=== PATIENT | female | born 1965 | race Caucasian/White ===

== ENCOUNTER 2022-10-08 20:30 | Inpatient (IN) | payer SELFPAY ==
[2022-10-08] VITALS (8 sets, daily range): BP systolic 137–189; BP diastolic 61–110; PULSE 71–100; RESP 13–19; TEMP 36.7–40; O2SAT 95–99; BMI 31.3
[2022-10-08] MEDS: Morphine 2 MG/ML Syringe IV (20:58)
[2022-10-08] MEDS: Ondansetron 4 MG/2 ML Vial IV (21:00)
--- NOTE | 2022-10-08 21:05 | EDS_ITS ---
HPI <ARASELI Uribe - Last Filed: 10/08/22 23:24> History of Present Illness Chief Complaint: Lower Extremity Injury Narrative Narrative: Presents today with pain to her left ankle after falling down the stairs shortly before arrival. She is unable to provide me much information because she is in so much pain. But has been states that she did not hit her head, and there was no loss of consciousness. states patient's only chronic medical co ndition is diabetes for which she takes metformin and Ozempic. She denies back pain, neck pain, head pain, and pain to the right extremity. [facility] <ARASELI Uribe - Last Filed: 10/08/22 23:24> [facility] Medical History (Updated 10/08/22 @ 23:24 by ARASELI Uribe) Pre-diabetes Allergy/AdvReac Type Severity Reaction Status Date / Time No Known Allergies Allergy Verified 10/08/22 20:31 Social History Smoking Status: Never smoker ROS <ARASELI Uribe - Last Filed: 10/08/22 23:24> ROS ED Constitutional Constitutional ED: Denies chills, fever(s) or sweats Eyes Eyes: Denies blurry vision or change in vision ENT ENT ED: Denies rhinorrhea or sore throat Cardiovascular Cardiovascular: Denies chest pain, palpitations or racing heartbeat Respiratory/Chest Respiratory/Chest: Denies cough, dyspnea or dyspnea on exertion Gastrointestinal Gastrointestinal: Denies abdominal pain, diarrhea, nausea or vomiting Genitourinary Genitourinary ED: Denies dysuria, hematuria or urinary frequency Musculoskeletal Musculoskeletal: Reports deformity, difficulty walking, joint pain and joint swelling Integumentary Denies abscess, Abrasions or rash Neurologic Neurologic: Denies headache(s), paresthesias or weakness Psychiatric Psychiatric: Denies anxiety, depression or suicidal ideation EXAM <ARASELI Uribe - Last Filed: 10/08/22 23:24> Physical Exam Const Vital Signs: 10/08/22 20:31 10/08/22 21:04 10/08/22 21:13 Temperature 104 F H 98.1 F Temperature Source Temporal Oral Pulse Rate 100 Pulse Rate [1 (Initial Baseline)] Pulse Rate [2] Pulse Rate [3] Pulse Rate [4] Pulse Rate [5] Respiratory Rate 16 Respiratory Rate [1 (Initial Baseline)] Respiratory Rate [2] Respiratory Rate [3] Respiratory Rate [4] Respiratory Rate [5] Blood Pressure 179/110 H Blood Pressure [1 (Initial Baseline)] Blood Pressure [2] Blood Pressure [3] Blood Pressure [4] Blood Pressure [5] Blood Pressure Mean 133 Pulse Ox 97 98 Oxygen Delivery Method Room Air Oxygen Delivery Method [1 (Initial Baseline)] Oxygen Delivery Method [2] Oxygen Delivery Method [3] Oxygen Delivery Method [4] Oxygen Delivery Method [5] Oxygen Flow Rate (L/min) [1 (Initial Baseline)] Oxygen Flow Rate (L/min) [4] Oxygen Flow Rate (L/min) [5] 10/08/22 22:47 10/08/22 22:52 10/08/22 23:10 Temperature 98.2 F Temperature Source Pulse Rate 71 Pulse Rate [1 (Initial Baseline)] 77 Pulse Rate [2] 74 Pulse Rate [3] 90 Pulse Rate [4] 78 Pulse Rate [5] 78 Respiratory Rate 13 Respiratory Rate [1 (Initial Baseline)] 13 Respiratory Rate [2] 19 H Respiratory Rate [3] 17 Respiratory Rate [4] 18 Respiratory Rate [5] 14 Blood Pressure 185/68 H Blood Pressure [1 (Initial Baseline)] 189/73 H Blood Pressure [2] 155/64 H Blood Pressure [3] 156/64 H Blood Pressure [4] 151/61 H Blood Pressure [5] 137/84 H Blood Pressure Mean Pulse Ox 98 Oxygen Delivery Method Room Air Room Air Oxygen Delivery Method [1 (Initial Baseline)] Nasal Cannula Oxygen Delivery Method [2] Nasal Cannula Oxygen Delivery Method [3] Nasal Cannula Oxygen Delivery Method [4] Nasal Cannula Oxygen Delivery Method [5] Nasal Cannula Oxygen Flow Rate (L/min) [1 (Initial Baseline)] 4 Oxygen Flow Rate (L/min) [4] 6 Oxygen Flow Rate (L/min) [5] 4 10/08/22 23:15 10/08/22 23:20 Temperature Temperature Source Pulse Rate Pulse Rate [1 (Initial Baseline)] Pulse Rate [2] Pulse Rate [3] Pulse Rate [4] Pulse Rate [5] Respiratory Rate Respiratory Rate [1 (Initial Baseline)] Respiratory Rate [2] Respiratory Rate [3] Respiratory Rate [4] Respiratory Rate [5] Blood Pressure Blood Pressure [1 (Initial Baseline)] Blood Pressure [2] Blood Pressure [3] Blood Pressure [4] Blood Pressure [5] Blood Pressure Mean Pulse Ox Oxygen Delivery Method Room Air Room Air Oxygen Delivery Method [1 (Initial Baseline)] Oxygen Delivery Method [2] Oxygen Delivery Method [3] Oxygen Delivery Method [4] Oxygen Delivery Method [5] Oxygen Flow Rate (L/min) [1 (Initial Baseline)] Oxygen Flow Rate (L/min) [4] Oxygen Flow Rate (L/min) [5] Positive well nourished and well developed General Appearance ED: well developed HEENT Reports moist mucous membranes normocephalic and atraumatic Eyes PERRL Neck full ROM Chest Wall inspection of chest normal and palpation of chest normal Resp normal respiratory effort and no retractions Cardio regular rate, regular rhythm and no murmurs GI non-tender, non-distended and no masses Extremity Extremity Narrative: Left ankle grossly edematous with visible deformity. Patient has limited range of motion due to pain. Physical exam limited due to patient's pain. DP pulses 2+ bilaterally. Good capillary refill bilaterally. Sensation intact bilaterally. Neuro oriented x3, CN's II-XII intact bilaterally, moves all extremities and no senso ry deficits noted Sensorium / Orientation: alert Psych mental status grossly normal Skin Lesions: no lesions Rashes: no rashes <Dr. Danielle Milian MD - Last Filed: 10/09/22 00:03> Physical Exam Const Vital Signs: 10/08/22 20:31 10/08/22 21:04 10/08/22 21:13 Temperature 104 F H 98.1 F Temperature Source Temporal Oral Pulse Rate 100 Pulse Rate [1 (Initial Baseline)] Pulse Rate [2] Pulse Rate [3] Pulse Rate [4] Pulse Rate [5] Respiratory Rate 16 Respiratory Rate [1 (Initial Baseline)] Respiratory Rate [2] Respiratory Rate [3] Respiratory Rate [4] Respiratory Rate [5] Blood Pressure 179/110 H Blood Pressure [1 (Initial Baseline)] Blood Pressure [2] Blood Pressure [3] Blood Pressure [4] Blood Pressure [5] Blood Pressure Mean 133 Pulse Ox 97 98 Oxygen Delivery Method Room Air Oxygen Delivery Method [1 (Initial Baseline)] Oxygen Delivery Method [2] Oxygen Delivery Method [3] Oxygen Delivery Method [4] Oxygen Delivery Method [5] Oxygen Flow Rate (L/min) [1 (Initial Baseline)] Oxygen Flow Rate (L/min) [4] Oxygen Flow Rate (L/min) [5] 10/08/22 22:47 10/08/22 22:52 10/08/22 23:10 Temperature 98.2 F Temperature Source Pulse Rate 71 Pulse Rate [1 (Initial Baseline)] 77 Pulse Rate [2] 74 Pulse Rate [3] 90 Pulse Rate [4] 78 Pulse Rate [5] 78 Respiratory Rate 13 Respiratory Rate [1 (Initial Baseline)] 13 Respiratory Rate [2] 19 H Respiratory Rate [3] 17 Respiratory Rate [4] 18 Respiratory Rate [5] 14 Blood Pressure 185/68 H Blood Pressure [1 (Initial Baseline)] 189/73 H Blood Pressure [2] 155/64 H Blood Pressure [3] 156/64 H Blood Pressure [4] 151/61 H Blood Pressure [5] 137/84 H Blood Pressure Mean Pulse Ox 98 Oxygen Delivery Method Room Air Room Air Oxygen Delivery Method [1 (Initial Baseline)] Nasal Cannula Oxygen Delivery Method [2] Nasal Cannula Oxygen Delivery Method [3] Nasal Cannula Oxygen Delivery Method [4] Nasal Cannula Oxygen Delivery Method [5] Nasal Cannula Oxygen Flow Rate (L/min) [1 (Initial Baseline)] 4 Oxygen Flow Rate (L/min) [4] 6 Oxygen Flow Rate (L/min) [5] 4 10/08/22 23:15 10/08/22 23:20 Temperature Temperature Source Pulse Rate Pulse Rate [1 (Initial Baseline)] Pulse Rate [2] Pulse Rate [3] Pulse Rate [4] Pulse Rate [5] Respiratory Rate Respiratory Rate [1 (Initial Baseline)] Respiratory Rate [2] Respiratory Rate [3] Respiratory Rate [4] Respiratory Rate [5] Blood Pressure Blood Pressure [1 (Initial Baseline)] Blood Pressure [2] Blood Pressure [3] Blood Pressure [4] Blood Pressure [5] Blood Pressure Mean Pulse Ox Oxygen Delivery Method Room Air Room Air Oxygen Delivery Method [1 (Initial Baseline)] Oxygen Delivery Method [2] Oxygen Delivery Method [3] Oxygen Delivery Method [4] Oxygen Delivery Method [5] Oxygen Flow Rate (L/min) [1 (Initial Baseline)] Oxygen Flow Rate (L/min) [4] Oxygen Flow Rate (L/min) [5] MDM <ARASELI Uribe - Last Filed: 10/08/22 23:24> MDM MDM Narrative Medical decision making narrative: Patient presents after falling down the steps and injuring her left ankle. Patient was provided pain control as well as Zofran. X-ray of the ankle shows a fracture as well as a dislocation. Patient's dislocation was reduced and splinted. Postreduction x-rays were obtained. Radiography Diagnostic Testing: Clinical Impression(s) from Imaging Studies Ankle X-Ray 10/08/22 21:30 IMPRESSION: Complex acute fracture/dislocation involving the ankle with acute mildly comminuted fracture of the medial malleolus and laterally displaced fracture involving the metaphysis of the distal fibula. There is disruption of the normal tibiotalar articulation such that the talar dome is subluxed laterally relative to the tibial plafond by approximately 1.7 cm. Electronically Signed: Favio Soares MD at 21:41 EST , Ankle X-Ray 10/08/22 23:06 IMPRESSION: 1. Casting material in place status post closed reduction. 2. Bimalleolar fracture. There has been mild improvement in alignment however persistent subluxation at the tibiotalar articulation. Electronically Signed: King Ordaz MD at 23:40 EST , <Dr. Danielle Milian MD - Last Filed: 10/09/22 00:03> [facility] Radiography Diagnostic Testing: Clinical Impression(s) from Imaging Studies Ankle X-Ray 10/08/22 21:30 IMPRESSION: Complex acute fracture/dislocation involving the ankle with acute mildly comminuted fracture of the medial malleolus and laterally displaced fracture involving the metaphysis of the distal fibula. There is disruption of the normal tibiotalar articulation such that the talar dome is subluxed laterally relative to the tibial plafond by approximately 1.7 cm. Electronically Signed: Favio Soares MD at 21:41 EST , Ankle X-Ray 10/08/22 23:06 IMPRESSION: 1. Casting material in place status post closed reduction. 2. Bimalleolar fracture. There has been mild improvement in alignment however persistent subluxation at the tibiotalar articulation. Electronically Signed: King Ordaz MD at 23:40 EST , Treatment and Re-Evaluation Narrative: Patient seen and evaluated with BRITTANEY. I personally interviewed and examined the patient. I was involved in all aspects of patient's orders, interpretation of results, and treatment. Patient presents via private vehicle with family after falling down 2 steps at home. She has left ankle injury and deformity. She denies striking her head or any other injury. She did not lose consciousness. Patient sitting upright in bed. She is uncomfortable and tearful. Head and neck examination shows no external sign of trauma. No C-spine tenderness on exam. Heart is slightly tachycardic and regular. Lung sounds are clear. Abdomen is soft and nontender. Extremity examination reveals pelvis to be stable. Deformity is noted to the left ankle with medial ecchymosis and edema. There is a superficial abrasion that does not track through the full skin thickness. She is able to wiggle toes and has good sensation and cap refill. Patient given analgesics for pain control and left ankle x-rays obtained. Per my interpretation this reveals a bimalleolar ankle fracture with dislocation. Patient is consented for procedural sedation. She receives multiple aliquots of propofol for a total of 200 mg. Left ankle is reduced and splinted with posterior splint as well as sugar-tong. Following splint application she has good cap refill in her toes. She has normal sensation. Repeat x-rays show improved alignment, however talus is still significantly displaced. Patient was discussed with Dr. Woodall. Patient will require surgery. Patient has multiple flights of steps at home and does not feel that she is able to get around well enough and have good enough pain control. Patient will be admitted tonight and Dr. Woodall will determine appropriate time for surgery. Patient is comfortable with this plan. <Dr. Danielle Milian MD - Last Filed: 10/09/22 00:03> Lower Extremity Splints Lower Extremity Splint: Orthoglass Splint Fabrication: Fabricated Location: Left Procedural Sedation 1 (Initial Baseline): Consent Signed: Yes Any Problems With Anesthesia: No You/Your family experience fever (hyperthermia) w/anesthesia: No Sedation medication: Propofol Dose: 200 Route: IV Total Moderate Sedation Units: 12 Mallampati Score: Class I ASA Classification: I Discharge Plan Triage Chief Complaint: Lower Extremity Injury ED Midlevel Provider: Suzy Lozano ED Provider: Danielle Milian Dx/Rx/DC Orders Clinical Impression: Dislocation of ankle, left, closed, Ankle fracture, left Primary Care Provider: Care Physician,No Primary Referrals: Keshawn Woodall DPM [[facility] Staff - Active Staff] - 3-5 Days [facility] Doctor,Out of [Non-Staff] - Disposition Disposition: Acute Care Hospital [facility]
[2022-10-08] MEDS: HYDROmorphone 0.5 MG/0.5 ML SYRINGE IV (21:08)
--- NOTE | 2022-10-08 21:30 | RAD_ITS ---
EXAM: XR LEFT ANKLE COMPLETE, 3 OR MORE VIEWS CLINICAL INDICATION: fall TECHNIQUE: Frontal, lateral and oblique views of the left ankle. This report was created using [employer] report generation technology. COMPARISON: None. FINDINGS: BONES/JOINTS: Complex acute fracture/dislocation involving the ankle with acute mildly comminuted fracture of the medial malleolus and laterally displaced fracture involving the metaphysis of the distal fibula (with valgus angulation at the fracture site). There is disruption of the normal tibiotalar articulation such that the talar dome is subluxed laterally relative to the tibial plafond by approximately 1.7 cm. Suspect at least small posterior tibiotalar joint effusion. Tiny plantar calcaneal enthesophyte. No sclerotic or destructive changes observed. SOFT TISSUES: Soft tissue swelling seen adjacent to the fracture sites. No radiopaque foreign body. RAD/Ankle min 3 Views IMPRESSION: Complex acute fracture/dislocation involving the ankle with acute mildly comminuted fracture of the medial malleolus and laterally displaced fracture involving the metaphysis of the distal fibula. There is disruption of the normal tibiotalar articulation such that the talar dome is subluxed laterally relative to the tibial plafond by approximately 1.7 cm. Electronically Signed: Favio Soares MD at 21:41 EST ,
--- NOTE | 2022-10-08 23:06 | RAD_ITS ---
INDICATION: post reduction EXAMINATION/TECHNIQUE: X-RAY - LEFT XR Ankle 2 Views 2 VIEWS COMPARISON: Earlier same date FINDINGS: SOFT TISSUES: No soft tissue swelling or gas. No radiopaque foreign body. BONES/JOINTS: Casting material in place. There has been improved alignment, medial and lateral malleolar fractures present, moderate persistent lateral subluxation of the talus.. No other acute bony changes. RAD/Ankle 2 Views IMPRESSION: 1. Casting material in place status post closed reduction. 2. Bimalleolar fracture. There has been mild improvement in alignment however persistent subluxation at the tibiotalar articulation. Electronically Signed: King Ordaz MD at 23:40 EST ,
[2022-10-08] MEDS: Propofol 200 MG/20 ML Vial IV BOLUS (23:16)
--- NOTE | 2022-10-08 23:49 | EKG12_ITS ---
Test Reason : PRE-OP Blood Pressure : / mmHG Vent. Rate : 064 BPM Atrial Rate : 064 BPM P-R Int : 148 ms QRS Dur : 078 ms QT Int : 406 ms P-R-T Axes : 050 010 020 degrees QTc Int : 418 ms Normal sinus rhythm Normal ECG Confirmed by DARBY MCKEON, FOUZIA ([id number]), legal editor MIKE MARROQUIN ([id number]) on 10/10/2022 6:36:28 AM Referred By: OCTAVIANO Confirmed By:RAYO PASTOR MD
[2022-10-09] VITALS (12 sets, daily range): BP systolic 137–172; BP diastolic 70–90; PULSE 65–99; RESP 14–16; TEMP 36.4–36.8; O2SAT 95–98; BMI 32.0
[2022-10-09 00:15] LABS: Absolute Neutrophil Count 13.3 X10^3/uL (2.0-7.7); Basophil# 0.04 X10^3/uL; Basophil% 0.3 % (0-1); Eosinophil# 0.06 X10^3/uL; Eosinophils% 0.4 % (0-5); Hematocrit 41.5 % (37-47); Hemoglobin 13.7 g/dL (12.0-15.0); Lymphocyte % 10.1 % (19-41); Mean Corpuscular Hgb 29.1 pg (27.0-32.0); Mean Corpuscular Volume 88.3 fL (81-99); Mean Platelet Vol. 9.6 fl (6.2-12.0); Monocyte# 0.69 X10^3/uL; Monocyte% 4.4 % (0-10); NRBC Flagged by Analyzer 0 % (0-5); Neutrophil # 13.27 X10^3/uL (2.7-7.7); Platelet Count 259 K/mm3 (150-450); RBC Distribution Width CV 12.5 % (11.6-14.6); RBC Distribution Width SD 40.7 fl (35.1-43.9); White Blood Count 15.8 K/mm3 (4.4-11.0)
[2022-10-09 00:48] LABS: AST(SGOT) 10 U/L (15-37); Alanine Aminotransfer ALT/SGPT 18 U/L (13-56); Albumin, Serum 3.5 g/dL (3.2-5.0); Alkaline Phosphatase 97 U/L (45-117); Anion Gap 5 (5-15); BUN 12 mg/dL (7-18); BUN/Creat Ratio 13.4 RATIO (10-20); Calcium,Total 8.5 mg/dL (8.5-10.1); Chloride 111 mmol/L (98-107); Creatinine, Serum 0.89 mg/dL (0.55-1.02); EST Glomerular Filtration Rate 69 mL/min (>60); Est Glom Filt Rate - Afr Amer 83 mL/min (>60); Globulin 3.4 g/dL (2.2-4.2); Glucose 146 mg/dL (74-106); Potassium 3.8 mmol/L (3.5-5.1); Protein, Total 6.9 g/dL (6.4-8.2); Sodium Level 141 mmol/L (136-145)
[2022-10-09] MEDS: HYDROmorphone 1 MG/ML Syringe IV ×3 (01:17→11:51)
[2022-10-09] MEDS: Acetaminophen 325 MG Tablet 650 MG PO ×2 (04:52→22:55)
[2022-10-09] MEDS: oxyCODONE 5 MG Tablet 10 MG PO (04:52)
[2022-10-09] MEDS: 0.9% Saline Lock 10 ML Syringe IV ×2 (06:58→11:51)
--- NOTE | 2022-10-09 07:20 | HP.PCM.HOS_ITS ---
HPI - General General Date of Admission: 10/08/22 HPI Narrative MEGAN CAMPA, is a 57 F who presents [facility] Medical History Pre-diabetes Home Medications Ozempic weight loss 10/09/22 [History Last Taken Unknown] metformin 500 mg QHS prediabetes 10/09/22 [History Last Taken Unknown] progesterone micronized 200 mg capsule 200 mg QHS hormone replacement 10/09/22 [History Last Taken Unknown] Allergy/AdvReac Type Severity Reaction Status Date / Time No Known Allergies Allergy Verified 10/08/22 20:31 Social History Smoking Status: Never smoker Vital Signs Vital Signs Vital Signs: 10/08/22 20:31 10/08/22 21:04 10/08/22 21:13 Temperature 104 F H 98.1 F Temperature Source Temporal Oral Pulse Rate 100 Pulse Rate [1 (Initial Baseline)] Pulse Rate [2] Pulse Rate [3] Pulse Rate [4] Pulse Rate [5] Respiratory Rate 16 Respiratory Rate [1 (Initial Baseline)] Respiratory Rate [2] Respiratory Rate [3] Respiratory Rate [4] Respiratory Rate [5] Respiratory Effort Respiratory Depth Respiratory Pattern Blood Pressure 179/110 H Blood Pressure [1 (Initial Baseline)] Blood Pressure [2] Blood Pressure [3] Blood Pressure [4] Blood Pressure [5] Blood Pressure Mean 133 Blood Pressure Source Blood Pressure Position Blood Pressure Location Pulse Ox 97 98 Oxygen Delivery Method Room Air Oxygen Delivery Method [1 (Initial Baseline)] Oxygen Delivery Method [2] Oxygen Delivery Method [3] Oxygen Delivery Method [4] Oxygen Delivery Method [5] Oxygen Flow Rate (L/min) [1 (Initial Baseline)] Oxygen Flow Rate (L/min) [4] Oxygen Flow Rate (L/min) [5] 10/08/22 22:47 10/08/22 22:52 10/08/22 23:10 Temperature 98.2 F Temperature Source Pulse Rate 71 Pulse Rate [1 (Initial Baseline)] 77 Pulse Rate [2] 74 Pulse Rate [3] 90 Pulse Rate [4] 78 Pulse Rate [5] 78 Respiratory Rate 13 Respiratory Rate [1 (Initial Baseline)] 13 Respiratory Rate [2] 19 H Respiratory Rate [3] 17 Respiratory Rate [4] 18 Respiratory Rate [5] 14 Respiratory Effort Respiratory Depth Respiratory Pattern Blood Pressure 185/68 H Blood Pressure [1 (Initial Baseline)] 189/73 H Blood Pressure [2] 155/64 H Blood Pressure [3] 156/64 H Blood Pressure [4] 151/61 H Blood Pressure [5] 137/84 H Blood Pressure Mean Blood Pressure Source Blood Pressure Position Blood Pressure Location Pulse Ox 98 Oxygen Delivery Method Room Air Room Air Oxygen Delivery Method [1 (Initial Baseline)] Nasal Cannula Oxygen Delivery Method [2] Nasal Cannula Oxygen Delivery Method [3] Nasal Cannula Oxygen Delivery Method [4] Nasal Cannula Oxygen Delivery Method [5] Nasal Cannula Oxygen Flow Rate (L/min) [1 (Initial Baseline)] 4 Oxygen Flow Rate (L/min) [4] 6 Oxygen Flow Rate (L/min) [5] 4 10/08/22 23:15 10/08/22 23:20 10/09/22 00:11 Temperature 98.2 F Temperature Source Temporal Pulse Rate 78 Pulse Rate [1 (Initial Baseline)] Pulse Rate [2] Pulse Rate [3] Pulse Rate [4] Pulse Rate [5] Respiratory Rate 14 Respiratory Rate [1 (Initial Baseline)] Respiratory Rate [2] Respiratory Rate [3] Respiratory Rate [4] Respiratory Rate [5] Respiratory Effort Respiratory Depth Respiratory Pattern Blood Pressure 138/79 H Blood Pressure [1 (Initial Baseline)] Blood Pressure [2] Blood Pressure [3] Blood Pressure [4] Blood Pressure [5] Blood Pressure Mean 98 Blood Pressure Source Blood Pressure Position Blood Pressure Location Pulse Ox 98 Oxygen Delivery Method Room Air Room Air Room Air Oxygen Delivery Method [1 (Initial Baseline)] Oxygen Delivery Method [2] Oxygen Delivery Method [3] Oxygen Delivery Method [4] Oxygen Delivery Method [5] Oxygen Flow Rate (L/min) [1 (Initial Baseline)] Oxygen Flow Rate (L/min) [4] Oxygen Flow Rate (L/min) [5] 10/09/22 02:20 10/09/22 03:00 10/09/22 02:23 Temperature 98.3 F 98 F Temperature Source Oral Oral Pulse Rate 69 65 Pulse Rate [1 (Initial Baseline)] Pulse Rate [2] Pulse Rate [3] Pulse Rate [4] Pulse Rate [5] Respiratory Rate 16 16 Respiratory Rate [1 (Initial Baseline)] Respiratory Rate [2] Respiratory Rate [3] Respiratory Rate [4] Respiratory Rate [5] Respiratory Effort Normal Non-Labored Respiratory Depth Normal Respiratory Pattern Normal Blood Pressure 165/74 H 157/75 H Blood Pressure [1 (Initial Baseline)] Blood Pressure [2] Blood Pressure [3] Blood Pressure [4] Blood Pressure [5] Blood Pressure Mean 104 102 Blood Pressure Source Monitor Monitor Blood Pressure Position Semi-Fowlers Semi-Fowlers Blood Pressure Location Left Arm Right Arm Pulse Ox 97 97 Oxygen Delivery Method Room Air Room Air Room Air Oxygen Delivery Method [1 (Initial Baseline)] Oxygen Delivery Method [2] Oxygen Delivery Method [3] Oxygen Delivery Method [4] Oxygen Delivery Method [5] Oxygen Flow Rate (L/min) [1 (Initial Baseline)] Oxygen Flow Rate (L/min) [4] Oxygen Flow Rate (L/min) [5] Weight Weight: 82 kg Body Mass Index (BMI) 32.0 Results Lab / Micro Data Result Diagrams: 10/09/22 00:07 10/09/22 00:07 Labs: Laboratory Results - last 24 hr 10/09/22 00:07: WBC 15.8 H, RBC 4.70, Hgb 13.7, Hct 41.5, MCV 88.3, MCH 29.1, MCHC 33.0, RDW Std Deviation 40.7, RDW Coeff of Bambi 12.5, Plt Count 259, MPV 9.6, Immature Gran % (Auto) 0.800, Neut % (Auto) 84.0 H, Lymph % (Auto) 10.1 L, [place] % (Auto) 4.4, Eos % (Auto) 0.4, Baso % (Auto) 0.3, Absolute Neuts (auto) 13.3 H, Absolute Lymphs (auto) 1.60, Nucleated RBC % 0 10/09/22 00:07: Sodium 141, Potassium 3.8, Chloride 111 H, Carbon Dioxide 25.0, Anion Gap 5, BUN 12, Creatinine 0.89, Estim Creat Clear Calc 57.00, Est GFR (MDRD) Af Amer 83, Est GFR (MDRD) Non-Af 69, BUN/Creatinine Ratio 13.4, Glucose 146 H, Calcium 8.5, Total Bilirubin 0.30, AST 10 L, ALT 18, Alkaline Phosphatase 97, Total Protein 6.9, Albumin 3.5, Globulin 3.4, Albumin/Globulin Ratio 1.0 10/09/22 00:07: Vitamin D 25-Hydroxy 54.0 Radiology Impression Ankle X-Ray 10/08/22 21:30 IMPRESSION: Complex acute fracture/dislocation involving the ankle with acute mildly comminuted fracture of the medial malleolus and laterally displaced fracture involving the metaphysis of the distal fibula. There is disruption of the normal tibiotalar articulation such that the talar dome is subluxed laterally relative to the tibial plafond by approximately 1.7 cm. Electronically Signed: Favio Soares MD at 21:41 EST , Ankle X-Ray 10/08/22 23:06 IMPRESSION: 1. Casting material in place status post closed reduction. 2. Bimalleolar fracture. There has been mild improvement in alignment however persistent subluxation at the tibiotalar articulation. Electronically Signed: King Ordaz MD at 23:40 EST ,
--- NOTE | 2022-10-09 07:20 | PCM.PN.HOSP ---
Objective Data Objective Data Vital Signs: Vital Signs Temp Pulse Resp BP Pulse Ox O2 Del Method O2 Flow Rate 98 F 65 16 157/75 H 97 Room Air 4 10/09/22 03:00 10/09/22 03:00 10/09/22 03:00 10/09/22 03:00 10/09/22 03:00 10/09/22 03:00 10/08/22 22:52 Oxygen Flow Rate (L/min) [5] 4 Oxygen Flow Rate (L/min) [4] 6 Oxygen Flow Rate (L/min) [1 ( 4 Initial Baseline)] Oxygen Delivery Method [5] Nasal Cannula Oxygen Delivery Method [4] Nasal Cannula Oxygen Delivery Method [3] Nasal Cannula Oxygen Delivery Method [2] Nasal Cannula Oxygen Delivery Method [1 ( Nasal Cannula Initial Baseline)] Oxygen Delivery Method Room Air Weight: 82 kg Body Mass Index (BMI) 32.0 Lab / Micro Data Result Diagrams: 10/09/22 00:07 10/09/22 00:07 Labs: Laboratory Results - last 24 hr 10/09/22 00:07: WBC 15.8 H, RBC 4.70, Hgb 13.7, Hct 41.5, MCV 88.3, MCH 29.1, MCHC 33.0, RDW Std Deviation 40.7, RDW Coeff of Bambi 12.5, Plt Count 259, MPV 9.6, Immature Gran % (Auto) 0.800, Neut % (Auto) 84.0 H, Lymph % (Auto) 10.1 L, [place] % (Auto) 4.4, Eos % (Auto) 0.4, Baso % (Auto) 0.3, Absolute Neuts (auto) 13.3 H, Absolute Lymphs (auto) 1.60, Nucleated RBC % 0 10/09/22 00:07: Sodium 141, Potassium 3.8, Chloride 111 H, Carbon Dioxide 25.0, Anion Gap 5, BUN 12, Creatinine 0.89, Estim Creat Clear Calc 57.00, Est GFR (MDRD) Af Amer 83, Est GFR (MDRD) Non-Af 69, BUN/Creatinine Ratio 13.4, Glucose 146 H, Calcium 8.5, Total Bilirubin 0.30, AST 10 L, ALT 18, Alkaline Phosphatase 97, Total Protein 6.9, Albumin 3.5, Globulin 3.4, Albumin/Globulin Ratio 1.0 10/09/22 00:07: Vitamin D 25-Hydroxy 54.0 Radiography Diagnostic Testing: Radiology Impression Ankle X-Ray 10/08/22 21:30 IMPRESSION: Complex acute fracture/dislocation involving the ankle with acute mildly comminuted fracture of the medial malleolus and laterally displaced fracture involving the metaphysis of the distal fibula. There is disruption of the normal tibiotalar articulation such that the talar dome is subluxed laterally relative to the tibial plafond by approximately 1.7 cm. Electronically Signed: Favio Soares MD at 21:41 EST , Ankle X-Ray 10/08/22 23:06 IMPRESSION: 1. Casting material in place status post closed reduction. 2. Bimalleolar fracture. There has been mild improvement in alignment however persistent subluxation at the tibiotalar articulation. Electronically Signed: King Ordaz MD at 23:40 EST ,
--- NOTE | 2022-10-09 07:25 | PCM.PN.HOSP ---
Subjective Subjective Consult for medical management: Patient is a 57-year-old female who fell down the stairs and fractured her ankle. We will consulted for medical management. Patient is due for surgery today. Denied any chest pain or dizziness or palpitation. Objective Data Objective Data Vital Signs: Vital Signs Temp Pulse Resp BP Pulse Ox O2 Del Method O2 Flow Rate 98 F 65 16 157/75 H 97 Room Air 4 10/09/22 03:00 10/09/22 03:00 10/09/22 03:00 10/09/22 03:00 10/09/22 03:00 10/09/22 03:00 10/08/22 22:52 Oxygen Flow Rate (L/min) [5] 4 Oxygen Flow Rate (L/min) [4] 6 Oxygen Flow Rate (L/min) [1 ( 4 Initial Baseline)] Oxygen Delivery Method [5] Nasal Cannula Oxygen Delivery Method [4] Nasal Cannula Oxygen Delivery Method [3] Nasal Cannula Oxygen Delivery Method [2] Nasal Cannula Oxygen Delivery Method [1 ( Nasal Cannula Initial Baseline)] Oxygen Delivery Method Room Air Weight: 82 kg Body Mass Index (BMI) 32.0 Lab / Micro Data Result Diagrams: 10/09/22 00:07 10/09/22 00:07 Labs: Laboratory Results - last 24 hr 10/09/22 00:07: WBC 15.8 H, RBC 4.70, Hgb 13.7, Hct 41.5, MCV 88.3, MCH 29.1, MCHC 33.0, RDW Std Deviation 40.7, RDW Coeff of Bambi 12.5, Plt Count 259, MPV 9.6, Immature Gran % (Auto) 0.800, Neut % (Auto) 84.0 H, Lymph % (Auto) 10.1 L, [place] % (Auto) 4.4, Eos % (Auto) 0.4, Baso % (Auto) 0.3, Absolute Neuts (auto) 13.3 H, Absolute Lymphs (auto) 1.60, Nucleated RBC % 0 10/09/22 00:07: Sodium 141, Potassium 3.8, Chloride 111 H, Carbon Dioxide 25.0, Anion Gap 5, BUN 12, Creatinine 0.89, Estim Creat Clear Calc 57.00, Est GFR (MDRD) Af Amer 83, Est GFR (MDRD) Non-Af 69, BUN/Creatinine Ratio 13.4, Glucose 146 H, Calcium 8.5, Total Bilirubin 0.30, AST 10 L, ALT 18, Alkaline Phosphatase 97, Total Protein 6.9, Albumin 3.5, Globulin 3.4, Albumin/Globulin Ratio 1.0 10/09/22 00:07: Vitamin D 25-Hydroxy 54.0 Radiography Diagnostic Testing: Radiology Impression Ankle X-Ray 10/08/22 21:30 IMPRESSION: Complex acute fracture/dislocation involving the ankle with acute mildly comminuted fracture of the medial malleolus and laterally displaced fracture involving the metaphysis of the distal fibula. There is disruption of the normal tibiotalar articulation such that the talar dome is subluxed laterally relative to the tibial plafond by approximately 1.7 cm. Electronically Signed: Favio Soares MD at 21:41 EST , Ankle X-Ray 10/08/22 23:06 IMPRESSION: 1. Casting material in place status post closed reduction. 2. Bimalleolar fracture. There has been mild improvement in alignment however persistent subluxation at the tibiotalar articulation. Electronically Signed: King Ordaz MD at 23:40 EST , Physical Exam Narrative Physical exam: General: Alert, Oriented x3, Cooperative, mild pain HEENT: Atraumatic Oral: Moist Mucosa Neck: Supple Lungs: Clear to auscultation Cardiovascular: HS I+II, regular, no murmurs Abdomen: Bowel Sounds Present, Soft, Non Tender Extremities: Left lower leg in pressure cuff Skin: No rashes, No breakdown Neurological: Grossly intact Psych/Mental Status: Appropriate Assessment & Plan Assessment/Plan (1) Dislocation of ankle, left, closed: PLAN: Plan 1.Prediabetes, HbA1c is 5.8, patient is on metformin, Will add Accu-Cheks with insulin sliding scale 2. Obesity, BMI is 32.0, on Ozempic, unclear dose for now Will hold medication was in the hospital 3. DVT PPx- Per primary podiatry team Charges/Coding Visit Charges Inpatient E&M: 92738 Subs Hosp L1
--- NOTE | 2022-10-09 08:37 | HP.PCM_ITS ---
HPI - General General Date of Admission: 10/08/22 Chief Complaint: Left ankle fracture HPI Narrative MEGAN CAMPA, is a 57 F patient seen this morning for left ankle fracture. Patient fractured ankle yesterday on the stairs. She presented to the ER last night, she has closed reduction in the ER. She is unable to go home due to pain and she has stairs at home she was concerned about. She relates she recently moved to [place] from [place]. She is resting in bed with splint clean, dry and intact. She relates pain is controlled as long as she does not move her foot/ankle. She relates to hx of prediabetes. She relates she does not have a primary care physician. [facility] Medical History Pre-diabetes Home Medications Ozempic weight loss 10/09/22 [History Last Taken Unknown] metformin 500 mg QHS prediabetes 10/09/22 [History Last Taken Unknown] progesterone micronized 200 mg capsule 200 mg QHS hormone replacement 10/09/22 [History Last Taken Unknown] Allergy/AdvReac Type Severity Reaction Status Date / Time No Known Allergies Allergy Verified 10/08/22 20:31 Social History Smoking Status: Never smoker ROS Constitutional Constitutional: Denies chills or fever(s) Vital Signs Vital Signs Vital Signs: 10/08/22 20:31 10/08/22 21:04 10/08/22 21:13 Temperature 104 F H 98.1 F Temperature Source Temporal Oral Pulse Rate 100 Pulse Rate [1 (Initial Baseline)] Pulse Rate [2] Pulse Rate [3] Pulse Rate [4] Pulse Rate [5] Respiratory Rate 16 Respiratory Rate [1 (Initial Baseline)] Respiratory Rate [2] Respiratory Rate [3] Respiratory Rate [4] Respiratory Rate [5] Respiratory Effort Respiratory Depth Respiratory Pattern Blood Pressure 179/110 H Blood Pressure [1 (Initial Baseline)] Blood Pressure [2] Blood Pressure [3] Blood Pressure [4] Blood Pressure [5] Blood Pressure Mean 133 Blood Pressure Source Blood Pressure Position Blood Pressure Location Pulse Ox 97 98 Oxygen Delivery Method Room Air Oxygen Delivery Method [1 (Initial Baseline)] Oxygen Delivery Method [2] Oxygen Delivery Method [3] Oxygen Delivery Method [4] Oxygen Delivery Method [5] Oxygen Flow Rate (L/min) [1 (Initial Baseline)] Oxygen Flow Rate (L/min) [4] Oxygen Flow Rate (L/min) [5] 10/08/22 22:47 10/08/22 22:52 10/08/22 23:10 Temperature 98.2 F Temperature Source Pulse Rate 71 Pulse Rate [1 (Initial Baseline)] 77 Pulse Rate [2] 74 Pulse Rate [3] 90 Pulse Rate [4] 78 Pulse Rate [5] 78 Respiratory Rate 13 Respiratory Rate [1 (Initial Baseline)] 13 Respiratory Rate [2] 19 H Respiratory Rate [3] 17 Respiratory Rate [4] 18 Respiratory Rate [5] 14 Respiratory Effort Respiratory Depth Respiratory Pattern Blood Pressure 185/68 H Blood Pressure [1 (Initial Baseline)] 189/73 H Blood Pressure [2] 155/64 H Blood Pressure [3] 156/64 H Blood Pressure [4] 151/61 H Blood Pressure [5] 137/84 H Blood Pressure Mean Blood Pressure Source Blood Pressure Position Blood Pressure Location Pulse Ox 98 Oxygen Delivery Method Room Air Room Air Oxygen Delivery Method [1 (Initial Baseline)] Nasal Cannula Oxygen Delivery Method [2] Nasal Cannula Oxygen Delivery Method [3] Nasal Cannula Oxygen Delivery Method [4] Nasal Cannula Oxygen Delivery Method [5] Nasal Cannula Oxygen Flow Rate (L/min) [1 (Initial Baseline)] 4 Oxygen Flow Rate (L/min) [4] 6 Oxygen Flow Rate (L/min) [5] 4 10/08/22 23:15 10/08/22 23:20 10/09/22 00:11 Temperature 98.2 F Temperature Source Temporal Pulse Rate 78 Pulse Rate [1 (Initial Baseline)] Pulse Rate [2] Pulse Rate [3] Pulse Rate [4] Pulse Rate [5] Respiratory Rate 14 Respiratory Rate [1 (Initial Baseline)] Respiratory Rate [2] Respiratory Rate [3] Respiratory Rate [4] Respiratory Rate [5] Respiratory Effort Respiratory Depth Respiratory Pattern Blood Pressure 138/79 H Blood Pressure [1 (Initial Baseline)] Blood Pressure [2] Blood Pressure [3] Blood Pressure [4] Blood Pressure [5] Blood Pressure Mean 98 Blood Pressure Source Blood Pressure Position Blood Pressure Location Pulse Ox 98 Oxygen Delivery Method Room Air Room Air Room Air Oxygen Delivery Method [1 (Initial Baseline)] Oxygen Delivery Method [2] Oxygen Delivery Method [3] Oxygen Delivery Method [4] Oxygen Delivery Method [5] Oxygen Flow Rate (L/min) [1 (Initial Baseline)] Oxygen Flow Rate (L/min) [4] Oxygen Flow Rate (L/min) [5] 10/09/22 02:20 10/09/22 03:00 10/09/22 02:23 Temperature 98.3 F 98 F Temperature Source Oral Oral Pulse Rate 69 65 Pulse Rate [1 (Initial Baseline)] Pulse Rate [2] Pulse Rate [3] Pulse Rate [4] Pulse Rate [5] Respiratory Rate 16 16 Respiratory Rate [1 (Initial Baseline)] Respiratory Rate [2] Respiratory Rate [3] Respiratory Rate [4] Respiratory Rate [5] Respiratory Effort Normal Non-Labored Respiratory Depth Normal Respiratory Pattern Normal Blood Pressure 165/74 H 157/75 H Blood Pressure [1 (Initial Baseline)] Blood Pressure [2] Blood Pressure [3] Blood Pressure [4] Blood Pressure [5] Blood Pressure Mean 104 102 Blood Pressure Source Monitor Monitor Blood Pressure Position Semi-Fowlers Semi-Fowlers Blood Pressure Location Left Arm Right Arm Pulse Ox 97 97 Oxygen Delivery Method Room Air Room Air Room Air Oxygen Delivery Method [1 (Initial Baseline)] Oxygen Delivery Method [2] Oxygen Delivery Method [3] Oxygen Delivery Method [4] Oxygen Delivery Method [5] Oxygen Flow Rate (L/min) [1 (Initial Baseline)] Oxygen Flow Rate (L/min) [4] Oxygen Flow Rate (L/min) [5] Weight Weight: 82 kg Body Mass Index (BMI) 32.0 Physical Exam Narrative Left foot/ankle/leg splinted - splint is clean, dry and intact and appears appropriate at this time. She denies pain as long as she does not move the left foot or ankle. She is not complaining of any calf pain. CFT < 2 seconds to the toes on the left foot. Const alert, oriented x3 and no apparent distress Results Lab / Micro Data Result Diagrams: 10/09/22 00:07 10/09/22 00:07 Labs: Laboratory Results - last 24 hr 10/09/22 00:07: WBC 15.8 H, RBC 4.70, Hgb 13.7, Hct 41.5, MCV 88.3, MCH 29.1, MCHC 33.0, RDW Std Deviation 40.7, RDW Coeff of Bambi 12.5, Plt Count 259, MPV 9.6, Immature Gran % (Auto) 0.800, Neut % (Auto) 84.0 H, Lymph % (Auto) 10.1 L, [place] % (Auto) 4.4, Eos % (Auto) 0.4, Baso % (Auto) 0.3, Absolute Neuts (auto) 13.3 H, Absolute Lymphs (auto) 1.60, Nucleated RBC % 0 10/09/22 00:07: Sodium 141, Potassium 3.8, Chloride 111 H, Carbon Dioxide 25.0, Anion Gap 5, BUN 12, Creatinine 0.89, Estim Creat Clear Calc 57.00, Est GFR (MDRD) Af Amer 83, Est GFR (MDRD) Non-Af 69, BUN/Creatinine Ratio 13.4, Glucose 146 H, Calcium 8.5, Total Bilirubin 0.30, AST 10 L, ALT 18, Alkaline Phosphatase 97, Total Protein 6.9, Albumin 3.5, Globulin 3.4, Albumin/Globulin Ratio 1.0 10/09/22 00:07: Vitamin D 25-Hydroxy 54.0 Radiology Impression Ankle X-Ray 10/08/22 21:30 IMPRESSION: Complex acute fracture/dislocation involving the ankle with acute mildly comminuted fracture of the medial malleolus and laterally displaced fracture involving the metaphysis of the distal fibula. There is disruption of the normal tibiotalar articulation such that the talar dome is subluxed laterally relative to the tibial plafond by approximately 1.7 cm. Electronically Signed: Favio Soares MD at 21:41 EST , Ankle X-Ray 10/08/22 23:06 IMPRESSION: 1. Casting material in place status post closed reduction. 2. Bimalleolar fracture. There has been mild improvement in alignment however persistent subluxation at the tibiotalar articulation. Electronically Signed: King Ordaz MD at 23:40 EST , Assessment & Plan Assessment/Plan (1) Ankle fracture, left: (2) Dislocation of ankle, left, closed: PLAN: Plan Evaluation performed. Patient is stable at this time. Reviewed left ankle xrays. Discussed with patient, discussed options and given the findings plan is for surgical intervention to address the ankle fracture. I am working with the OR to determine if we can do this today or if we will have to wait until tomorrow. Discussed procedure with her, reviewed possible benefits vs risks, goals, and expectations. Discussed estimated recovery course. No weightbearing left foot, keep left foot elevated. Keep splint clean, dry and intact. Pain Management: Tylenol, Oxyir, and Dilaudid. Hospitalist was consulted for patient's hx of diabetes and for medical evaluation - appreciate assistance.
[2022-10-09 11:00] LABS: Hemoglobin A1c 5.8 % (3.8-5.6)
--- NOTE | 2022-10-09 11:05 | CASEMGMT ---
RN CAMRYN Face to Face with patient for initial transition planning/care coordination assessment. RN CM introduced self and role at [facility]. Patient lying in bed, alert and oriented, at bedside. Patient willing to participate in assessment and is able to answer all questions appropriately. Care providers, pharmacy, and demographics verified. Patient wishes to discharge home, denies need for home health at this time. Patient states she has no further needs or concerns at this time. CM to follow for discharge planning needs that may arise. PCP: NO PCP, CAMRYN to provide list to patient. Specialists: none Preferred Pharmacy: [facility] Insurance: [place] Prescription Benefit: yes Living Will/HPOA: none LNOK: Living Arrangements: Patient lives with in a split level home with 5-6 steps per level with railing. Patient states she was independent at home. Transportation: self, DME/HHC: Patient states she has BSC, walker, and crutches at home. No previous HHC or SNF. Disposition Plan: Patient to discharge home with family support and follow-up plans in place. Marina ARMENTA, RN, CM
--- NOTE | 2022-10-09 14:46 | RAD_ITS ---
INDICATION: ORIF EXAMINATION/TECHNIQUE: X-RAY - LEFT XR Ankle Min 3 Views 7 VIEWS COMPARISON: October 08, 2022 11:15 PM FINDINGS: 5 fluoroscopic guided images were obtained demonstrating postsurgical changes status post open reduction internal fixation of the bimalleolar fractures. Fracture fragments are in anatomic alignment and position with indwelling orthopedic hardware. RAD/Ankle min 3 Views IMPRESSION: Status post ORIF bilateral malleolus fractures Electronically Signed: Keshawn Naik MD at 17:32 EST ,
[2022-10-09] MEDS: Cefazolin 2 GM in 0.9% Normal Saline 100 ML IV (15:04)
[2022-10-09] MEDS: Lidocaine 2% /Epi 1:100 (20ml) 20 ML VIAL (15:20)
--- NOTE | 2022-10-09 18:01 | OP.PCM_ITS ---
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 Xrays obtained, there was displaced ankle fracture. Patient elected to proceed with open reduction internal fixation of the fracture. The procedure was reviewed with her in detail. The rationale of the procedure was reviewed with her. The goals and the expectations were discussed and reviewed with her. The possible benefits vs risks and all potential complications were discussed and reviewed with the patient. Patient advised the risks include but are not limited to pain, swelling, blood clot, infection, need for further surgery, symptomatic hardware, numbness, post op arthritis, nerve injury, weakness, loss of limb, loss of life.The patient expressed understanding and agreement, and elected to proceed forward with the procedure. All of her questions were answered. The consent forms were reviewed with her and she freely signed it. No guarantees were given or implied. Operative Procedure: The patient was brought back to the operating room and was placed on the operating room table in the supine position. The patient was carefully secured to the operating room table with a safety belt around her waist. The patient received 2grams of IV Ancef for antibiotic prophylaxis. A well padded pneumatic tourniquet was applied around the left thigh, but was not used for this procedure. The left lower extremity was scrubbed, prepped, and draped in the usual aseptic fashion. A total of 20mL of 1% Lidocaine pain with 1:100,000 epi was given as a ankle block. The ankle was noted to be very unstable consistent with bimalleolus ankle fracture. Using a 15 blade, a skin incision was made overlying the lateral malleolus. Careful dissection was completed down to the lateral malleolus fracture. The periosteum was left intact. There was an oblique malleolus fracture. The fibula was brought out to length and was rotated back to normal position, it was stabilized with a bone clamp. The fracture was fixated using rigid open reduction internal fixation technique with 1 Arthrex a titanium distal fibular plate, which was applied across the fracture site using 3.0mm locking screws distally and 3.5mm locking screws and one 3.5mm cortical screw proximally through the plate. The clamp was removed. There fracture was reduced, very stable, and in good position. This was confirmed visually as well as using intra operative fluoroscopy. Attention was directed to the medial malleolus. A skin incision was made overlying the medial malleolus using a 15 blade. Dissection was completed down to the bone and the fracture was identified. The fracture was completed and was slightly communited. The fracture was reduced into normal position manually. The fracture was fixated using 2 Arthrex cannulated screws, and a 1.35mm kwire was also used to provide further stability across the fracture site, this was needed because there was still some slight instability of the fracture site after placing the 2 screws. After placing the 2 screws and the kwire there was excellent stability. There fracture was reduced, very stable, and in good position. This was confirmed visually as well as using intra operative fluoroscopy. Again it was noted the fractures were reduced, stable, and in good position. This was confirmed visually as well as using intra operative fluoroscopy. But there was noted to be some mild instability of the distal syndesmosis, and the syndesmosis was reduced, and fixated using one Arthrex Tightrope and appropriately tensioned. At this time, the distal ankle syndesmosis was stressed with and it was noted be be stable with no gapping present. The posterior malleolus was intact. At this time there was noted to be excellent stability to the ankle joint, range of motion was smooth and gliding normally. There was no popping, clicking, or crepitus present. Intraoperative fluoroscopy was used to check the site and it was noted fibular length and tib fib overlap was normal, ankle mortise with medial and lateral gutters in normal position/alignment with good positioning of the plate, screws, and tight rope. There was good bone to bone alignment of the fracture sites. There was excellent stability to the ankle / fracture site. The ankle was stressed under fluoroscopy and negative anterior drawer, normal talar tilt, no medial gutter gapping with external stress test, and no gapping or instability with Cotton test as noted above. The surgical site was flushed out with copious amounts of normal saline solution. The subcutaneous tissue was reapproximated using 2-0 Vicryl, and the skin was 3-0 Nylon. Hemostasis maintained with no significant bleeding. CFT < 2 seconds to all toes with intact pedal pulses. A dressing was applied which consisted of Betadine soaked adaptic, 4x4 gauze, Kerlix, webril, chaparrita bandages, and well padded below knee posterior splint w/ heel offloaded. Good vascular flow to the foot/ankle was maintained throughout the procedure with CFT < 2 seconds, and normal temperature present. Also of note, all vital structures, including all vital neurovascular and tendon structures were properly identified, protected and retracted as necessary. The patient tolerated the above procedure well and anesthesia well with no complications. The patient was transported to the recovery room in good conditi on and vital signs stable. Post op orders were placed, no weightbearing left foot, keep foot elevated. Keep dressing/splint clean, dry and intact. Patient will be followed as inpatient. Grafts/Implants Used: Arthrex fibular plate and screws, 2 x 4.0mm Arthrex screws and 1 tight rope Complications None
--- NOTE | 2022-10-09 18:25 | RAD_ITS ---
INDICATION: post op EXAMINATION/TECHNIQUE: X-RAY - LEFT XR Ankle Min 3 Views 3 VIEWS COMPARISON: October 09, 2022 FINDINGS: Postsurgical changes status post open reduction internal fixation of bilateral malleolus fracture with indwelling orthopedic hardware. Fracture fragments are in anatomic alignment and position . RAD/Ankle min 3 Views IMPRESSION: Status post ORIF bimalleolar fracture Electronically Signed: Keshawn Naik MD at 19:38 EST ,
[2022-10-09] MEDS: Ketorolac 30 MG/ML Syringe IV (20:41)
[2022-10-09] MEDS: 0.9% Normal Saline 1,000 ML 100 ML IV (20:46)
[2022-10-09] MEDS: metFORMIN (XR) 500 MG Tablet PO (22:51)
[2022-10-09] MEDS: Cefazolin 1 GM/50 ML BAG IV (22:56)
[2022-10-09 23:40] LABS: Bedside Glucose 141 mg/dL (74-106)
[2022-10-10 03:54] VITALS: BP 147/72; PULSE 77; RESP 17; TEMP 36.7; O2SAT 96
[2022-10-10 04:12] LABS: Absolute Lymphocyte Count 1.11 X10^3/uL (0.83-4.51); Absolute Neutrophil Count 9.4 X10^3/uL (2.0-7.7); Basophil# 0.02 X10^3/uL; Basophil% 0.2 % (0-1); Eosinophil# 0.02 X10^3/uL; Eosinophils% 0.2 % (0-5); Hematocrit 38.1 % (37-47); Hemoglobin 12.4 g/dL (12.0-15.0); Lymphocyte # 1.11 X10^3/ul (0.83-4.51); Lymphocyte % 9.7 % (19-41); Mean Corp Hgb Conc 32.5 g/dL (32-36); Mean Corpuscular Hgb 28.8 pg (27.0-32.0); Mean Corpuscular Volume 88.4 fL (81-99); Mean Platelet Vol. 9.3 fl (6.2-12.0); Monocyte# 0.77 X10^3/uL; Monocyte% 6.7 % (0-10); NRBC Flagged by Analyzer 0 % (0-5); Neutrophil # 9.44 X10^3/uL (2.7-7.7); Neutrophil % 82.5 % (47-70); Platelet Count 253 K/mm3 (150-450); RBC Distribution Width CV 12.5 % (11.6-14.6); RBC Distribution Width SD 40.8 fl (35.1-43.9); Red Blood Count 4.31 M/mm3 (4.2-5.4); White Blood Count 11.4 K/mm3 (4.4-11.0)
[2022-10-10] MEDS: Cefazolin 1 GM/50 ML BAG IV ×3 (05:03→21:46)
[2022-10-10 05:06] LABS: ALB/GLOB Ratio 0.9 RATIO (0.9-2.4); AST(SGOT) 8 U/L (15-37); Alanine Aminotransfer ALT/SGPT 16 U/L (13-56); Albumin, Serum 2.7 g/dL (3.2-5.0); Alkaline Phosphatase 69 U/L (45-117); Anion Gap 7 (5-15); BUN 7 mg/dL (7-18); BUN/Creat Ratio 11.8 RATIO (10-20); Calcium,Total 7.7 mg/dL (8.5-10.1); Chloride 110 mmol/L (98-107); Creatinine, Serum 0.59 mg/dL (0.55-1.02); EST Glomerular Filtration Rate 110 mL/min (>60); Est Glom Filt Rate - Afr Amer 133 mL/min (>60); Estimated Creatinine Clearance 85.98 ml/min; Globulin 3.1 g/dL (2.2-4.2); Glucose 124 mg/dL (74-106); Potassium 3.8 mmol/L (3.5-5.1); Protein, Total 5.8 g/dL (6.4-8.2); Sodium Level 143 mmol/L (136-145)
[2022-10-10] MEDS: 0.9% Normal Saline 1,000 ML 100 ML IV (06:16)
[2022-10-10] MEDS: Acetaminophen 325 MG Tablet 650 MG PO ×3 (06:51→23:49)
[2022-10-10 07:16] LABS: Bedside Glucose 117 mg/dL (74-106)
--- NOTE | 2022-10-10 08:38 | PCM.PROGNOTE ---
Subjective Subjective Patient was seen this morning for follow up on left ankle. She is resting in bed with no complaints. Pain is controlled. No fever, chills, nausea or vomiting. No calf pain or cramping. Objective Data Objective Data Vital Signs: Vital Signs Temp Pulse Resp BP Pulse Ox O2 Del Method O2 Flow Rate 98.1 F 77 17 147/72 H 96 Room Air 2 10/10/22 03:54 10/10/22 03:54 10/10/22 03:54 10/10/22 03:54 10/10/22 03:54 10/10/22 03:54 10/09/22 20:00 Oxygen Flow Rate (L/min) [5] 4 Oxygen Flow Rate (L/min) [4] 6 Oxygen Flow Rate (L/min) [1 ( 4 Initial Baseline)] Oxygen Flow Rate (L/min) 2 Oxygen Delivery Method [5] Nasal Cannula Oxygen Delivery Method [4] Nasal Cannula Oxygen Delivery Method [3] Nasal Cannula Oxygen Delivery Method [2] Nasal Cannula Oxygen Delivery Method [1 ( Nasal Cannula Initial Baseline)] Oxygen Delivery Method Room Air Weight: 82 kg Body Mass Index (BMI) 32.0 Intake & Output: Intake and Output for Last 24 Hours 10/08/22 10/09/22 10/10/22 23:59 23:59 23:59 Intake Total 110 / 110 1050 / 1050 Output Total 400 / 400 Balance 110 / 110 650 / 650 Lab / Micro Data Result Diagrams: 10/10/22 03:59 10/10/22 03:59 Labs: Laboratory Results - last 24 hr 10/09/22 00:07: Hemoglobin A1c 5.8 H 10/09/22 22:48: POC Glucose 141 H 10/10/22 03:59: WBC 11.4 H, RBC 4.31, Hgb 12.4, Hct 38.1, MCV 88.4, MCH 28.8, MCHC 32.5, RDW Std Deviation 40.8, RDW Coeff of Bambi 12.5, Plt Count 253, MPV 9.3, Immature Gran % (Auto) 0.700, Neut % (Auto) 82.5 H, Lymph % (Auto) 9.7 L, [place] % (Auto) 6.7, Eos % (Auto) 0.2, Baso % (Auto) 0.2, Absolute Neuts (auto) 9.4 H, Absolute Lymphs (auto) 1.11, Nucleated RBC % 0 10/10/22 03:59: Sodium 143, Potassium 3.8, Chloride 110 H, Carbon Dioxide 26.0, Anion Gap 7, BUN 7, Creatinine 0.59, Estim Creat Clear Calc 85.98, Est GFR (MDRD) Af Amer 133, Est GFR (MDRD) Non-Af 110, BUN/Creatinine Ratio 11.8, Glucose 124 H, Calcium 7.7 L, Total Bilirubin 0.30, AST 8 L, ALT 16, Alkaline Phosphatase 69, Total Protein 5.8 L, Albumin 2.7 L, Globulin 3.1, Albumin/Globulin Ratio 0.9 10/10/22 06:15: POC Glucose 117 H Radiography Diagnostic Testing: Radiology Impression Ankle X-Ray 10/09/22 14:46 IMPRESSION: Status post ORIF bilateral malleolus fractures Electronically Signed: Keshawn Naik MD at 17:32 EST Reading Location ID and State: [facility] / [place] , Service support , Ankle X-Ray 10/09/22 18:25 IMPRESSION: Status post ORIF bimalleolar fracture Electronically Signed: Keshawn Naik MD at 19:38 EST Reading Location ID and State: [facility] / [place] , Service support , Physical Exam Narrative Left foot/ankle/leg splinted - splint is clean, dry and intact and appears appropriate at this time. She denies pain as long as she does not move the left foot or ankle. She is not complaining of any calf pain. CFT < 2 seconds to the toes on the left foot. She is able to dorsiflex and plantarflex toes. Const alert, oriented x3 and no apparent distress Assessment & Plan Assessment/Plan (1) Ankle fracture, left: (2) Dislocation of ankle, left, closed: PLAN: Plan Evaluation performed. s/p ORIF left ankle on 10/09/22 - doing well. I suspect the left lower extremity popliteal block has yet to wear off. It should wear off at some point today and as long as pain is controlled with oral pain medication she may go home. However it is likely she will need strong pain medication and will need to stay until tomorrow. Discussed details of surgery with patient and reviewed post op xrays which look good. No weightbearing left foot, keep left foot elevated. Keep splint clean, dry and intact. Pain Management: Tylenol, Oxyir, and Dilaudid. DVT Prophylaxis: Lovenox 40mg subc daily. Hospitalist on consult for patient's hx of diabetes - appreciate assistance.
[2022-10-10 10:03] VITALS: BP 143/66; PULSE 82; RESP 16; TEMP 36.8; O2SAT 96
[2022-10-10] MEDS: oxyCODONE 5 MG Tablet 10 MG PO ×3 (10:15→23:49)
[2022-10-10] MEDS: Enoxaparin 40 MG/0.4 ML Syringe SC (10:16)
--- NOTE | 2022-10-10 10:36 | CASEMGMT ---
RN CM provided patient with PCP list. Patient and family have no further questions or concerns at this time. CM will continue to follow this patient and plan for a safe discharge.
[2022-10-10 11:46] LABS: Bedside Glucose 120 mg/dL (74-106)
--- NOTE | 2022-10-10 12:09 | PCM.PN.HOSP ---
Subjective Subjective Follow-up on medical management/left ankle fracture: Patient was seen and examined. Denied any new complaint. Pain is fairly controlled. Objective Data Objective Data Vital Signs: Vital Signs Temp Pulse Resp BP Pulse Ox O2 Del Method O2 Flow Rate 98.2 F 82 16 143/66 H 96 Room Air 2 10/10/22 10:03 10/10/22 10:03 10/10/22 10:03 10/10/22 10:03 10/10/22 10:03 10/10/22 10:03 10/09/22 20:00 Oxygen Flow Rate (L/min) [5] 4 Oxygen Flow Rate (L/min) [4] 6 Oxygen Flow Rate (L/min) [1 ( 4 Initial Baseline)] Oxygen Flow Rate (L/min) 2 Oxygen Delivery Method [5] Nasal Cannula Oxygen Delivery Method [4] Nasal Cannula Oxygen Delivery Method [3] Nasal Cannula Oxygen Delivery Method [2] Nasal Cannula Oxygen Delivery Method [1 ( Nasal Cannula Initial Baseline)] Oxygen Delivery Method Room Air Weight: 82 kg Body Mass Index (BMI) 32.0 Intake & Output: Intake and Output for Last 24 Hours 10/08/22 10/09/22 10/10/22 23:59 23:59 23:59 Intake Total 110 / 110 1050 / 1050 Output Total 400 / 400 Balance 110 / 110 650 / 650 Lab / Micro Data Result Diagrams: 10/10/22 03:59 10/10/22 03:59 Labs: Laboratory Results - last 24 hr 10/09/22 22:48: POC Glucose 141 H 10/10/22 03:59: WBC 11.4 H, RBC 4.31, Hgb 12.4, Hct 38.1, MCV 88.4, MCH 28.8, MCHC 32.5, RDW Std Deviation 40.8, RDW Coeff of Bambi 12.5, Plt Count 253, MPV 9.3, Immature Gran % (Auto) 0.700, Neut % (Auto) 82.5 H, Lymph % (Auto) 9.7 L, [place] % (Auto) 6.7, Eos % (Auto) 0.2, Baso % (Auto) 0.2, Absolute Neuts (auto) 9.4 H, Absolute Lymphs (auto) 1.11, Nucleated RBC % 0 10/10/22 03:59: Sodium 143, Potassium 3.8, Chloride 110 H, Carbon Dioxide 26.0, Anion Gap 7, BUN 7, Creatinine 0.59, Estim Creat Clear Calc 85.98, Est GFR (MDRD) Af Amer 133, Est GFR (MDRD) Non-Af 110, BUN/Creatinine Ratio 11.8, Glucose 124 H, Calcium 7.7 L, Total Bilirubin 0.30, AST 8 L, ALT 16, Alkaline Phosphatase 69, Total Protein 5.8 L, Albumin 2.7 L, Globulin 3.1, Albumin/Globulin Ratio 0.9 10/10/22 06:15: POC Glucose 117 H 10/10/22 11:15: POC Glucose 120 H Radiography Diagnostic Testing: Radiology Impression Ankle X-Ray 10/09/22 14:46 IMPRESSION: Status post ORIF bilateral malleolus fractures Electronically Signed: Keshawn Naik MD at 17:32 EST Reading Location ID and State: [facility] / [place] , Service support , Ankle X-Ray 10/09/22 18:25 IMPRESSION: Status post ORIF bimalleolar fracture Electronically Signed: Keshawn Naik MD at 19:38 EST , Physical Exam Narrative Physical exam: General: Alert, Oriented x3, Cooperative, mild pain HEENT: Atraumatic Oral: Moist Mucosa Neck: Supple Lungs: Clear to auscultation Cardiovascular: HS I+II, regular, no murmurs Abdomen: Bowel Sounds Present, Soft, Non Tender Extremities: Left lower leg in pressure cuff Skin: No rashes, No breakdown Neurological: Grossly intact Psych/Mental Status: Appropriate Assessment & Plan Assessment/Plan (1) Dislocation of ankle, left, closed: PLAN: Plan 1. POD #1, ORIF left ankle fracture, pain is fairly controlled Continue with PT and OT recommendation Continue with podiatry recommendations 2. Prediabetes, HbA1c is 5.8, blood sugar checks are fairly controlled Continue with insulin sliding scale 3. Obesity, BMI is 32.0, on Ozempic, unclear dose for now Will hold medication whilst in the hospital 4. DVT PPx- Per primary podiatry team Charges/Coding Visit Charges Inpatient E&M: 36521 Subs Hosp L1
[2022-10-10 13:57] VITALS: BP 159/73; PULSE 88; RESP 18; TEMP 36.7; O2SAT 98
[2022-10-10] MEDS: HYDROmorphone 1 MG/ML Syringe IV ×4 (14:00→21:46)
[2022-10-10 16:46] LABS: Bedside Glucose 165 mg/dL (74-106)
[2022-10-10 17:27] VITALS: BP 158/75; PULSE 89; RESP 16; TEMP 36.8; O2SAT 96
[2022-10-10] MEDS: Ondansetron 4 MG/2 ML Vial IV (17:41)
[2022-10-10] MEDS: 0.9% Saline Lock 10 ML Syringe IV (19:03)
[2022-10-10] MEDS: Gabapentin 300 MG Capsule PO (19:26)
[2022-10-10] MEDS: metFORMIN (XR) 500 MG Tablet PO (21:47)
[2022-10-10 22:15] VITALS: BP 146/69; PULSE 73; RESP 19; TEMP 37; O2SAT 96
[2022-10-10 22:30] LABS: Bedside Glucose 146 mg/dL (74-106)
[2022-10-11 04:04] VITALS: BP 145/72; PULSE 79; RESP 14; TEMP 36.7; O2SAT 92
[2022-10-11] MEDS: 0.9% Saline Lock 10 ML Syringe IV ×3 (04:18→17:53)
[2022-10-11] MEDS: HYDROmorphone 1 MG/ML Syringe IV ×3 (04:18→17:53)
[2022-10-11] MEDS: Cefazolin 1 GM/50 ML BAG IV ×3 (05:23→22:06)
[2022-10-11 07:25] LABS: Bedside Glucose 125 mg/dL (74-106)
[2022-10-11] MEDS: Enoxaparin 40 MG/0.4 ML Syringe SC (09:47)
--- NOTE | 2022-10-11 10:01 | PCM.PROGNOTE ---
Objective Data Objective Data Vital Signs: Vital Signs Temp Pulse Resp BP Pulse Ox O2 Del Method O2 Flow Rate 98.1 F 79 14 145/72 H 92 Room Air 2 10/11/22 04:04 10/11/22 04:04 10/11/22 04:04 10/11/22 04:04 10/11/22 04:04 10/11/22 08:00 10/09/22 20:00 Oxygen Flow Rate (L/min) [5] 4 Oxygen Flow Rate (L/min) [4] 6 Oxygen Flow Rate (L/min) [1 ( 4 Initial Baseline)] Oxygen Flow Rate (L/min) 2 Oxygen Delivery Method [5] Nasal Cannula Oxygen Delivery Method [4] Nasal Cannula Oxygen Delivery Method [3] Nasal Cannula Oxygen Delivery Method [2] Nasal Cannula Oxygen Delivery Method [1 ( Nasal Cannula Initial Baseline)] Oxygen Delivery Method Room Air Weight: 82 kg Body Mass Index (BMI) 32.0 Intake & Output: Intake and Output for Last 24 Hours 10/09/22 10/10/22 10/11/22 23:59 23:59 23:59 Intake Total 110 / 110 2373.33 / 2373.33 50 / 50 Output Total 1974 700 / 700 Balance 110 / 110 398.33 / 398.33 -650 / -650 Lab / Micro Data Result Diagrams: 10/10/22 03:59 10/10/22 03:59 Labs: Laboratory Results - last 24 hr 10/10/22 11:15: POC Glucose 120 H 10/10/22 16:20: POC Glucose 165 H 10/10/22 22:01: POC Glucose 146 H 10/11/22 06:26: POC Glucose 125 H
[2022-10-11 10:15] VITALS: BP 147/66; PULSE 72; RESP 18; TEMP 36.7; O2SAT 93
[2022-10-11] MEDS: oxyCODONE 5 MG Tablet 10 MG PO ×3 (10:26→22:52)
[2022-10-11] MEDS: Acetaminophen 325 MG Tablet 650 MG PO ×3 (10:26→22:52)
--- NOTE | 2022-10-11 10:29 | PCM.PN.HOSP ---
Subjective Subjective Follow-up on medical management/left ankle fracture: Patient was seen and examined.? Denied any new complaint.? No acute events overnight Objective Data Objective Data Vital Signs: Vital Signs Temp Pulse Resp BP Pulse Ox O2 Del Method O2 Flow Rate 98.1 F 79 14 145/72 H 92 Room Air 2 10/11/22 04:04 10/11/22 04:04 10/11/22 04:04 10/11/22 04:04 10/11/22 04:04 10/11/22 08:00 10/09/22 20:00 Oxygen Flow Rate (L/min) [5] 4 Oxygen Flow Rate (L/min) [4] 6 Oxygen Flow Rate (L/min) [1 ( 4 Initial Baseline)] Oxygen Flow Rate (L/min) 2 Oxygen Delivery Method [5] Nasal Cannula Oxygen Delivery Method [4] Nasal Cannula Oxygen Delivery Method [3] Nasal Cannula Oxygen Delivery Method [2] Nasal Cannula Oxygen Delivery Method [1 ( Nasal Cannula Initial Baseline)] Oxygen Delivery Method Room Air Weight: 82 kg Body Mass Index (BMI) 32.0 Intake & Output: Intake and Output for Last 24 Hours 10/09/22 10/10/22 10/11/22 23:59 23:59 23:59 Intake Total 110 / 110 2373.33 / 2373.33 50 / 50 Output Total 1974 700 / 700 Balance 110 / 110 398.33 / 398.33 -650 / -650 Lab / Micro Data Result Diagrams: 10/11/22 10:40 10/11/22 10:40 Labs: Laboratory Results - last 24 hr 10/10/22 11:15: POC Glucose 120 H 10/10/22 16:20: POC Glucose 165 H 10/10/22 22:01: POC Glucose 146 H 10/11/22 06:26: POC Glucose 125 H Physical Exam Narrative Physical exam: General: Alert, Oriented x3, Cooperative HEENT: Atraumatic Oral: Moist Mucosa Neck: Supple Lungs: Clear to auscultation Cardiovascular: HS I+II, regular, no murmurs Abdomen: Bowel Sounds Present, Soft, Non Tender Extremities: Left lower leg in [place] wraps, able to wiggle her toes Skin: No rashes, No breakdown Neurological: Grossly intact Psych/Mental Status: Appropriate Assessment & Plan Assessment/Plan (1) Dislocation of ankle, left, closed: PLAN: Plan 1. POD #2, ORIF left ankle fracture, pain is fairly controlled Continue with PT and OT recommendation Continue with podiatry recommendations 2. Prediabetes, HbA1c is 5.8, blood sugar checks are fairly controlled Continue with insulin sliding scale 3. Obesity, BMI is 32.0, on Ozempic, unclear dose for now Will hold medication whilst in the hospital 4. DVT PPx- Per primary podiatry team Thank you for the consult. Patient appears to be stable and awaiting discharge planning. Will sign off from hospital medicine perspective. Do not hesitate to reconsult the team if needed. Charges/Coding Visit Charges Inpatient E&M: 09995 Subs Hosp L1
[2022-10-11 10:56] LABS: Absolute Lymphocyte Count 1.46 X10^3/uL (0.83-4.51); Basophil# 0.03 X10^3/uL; Basophil% 0.3 % (0-1); Eosinophil# 0.19 X10^3/uL; Eosinophils% 1.8 % (0-5); Hematocrit 39.4 % (37-47); Hemoglobin 12.6 g/dL (12.0-15.0); Lymphocyte # 1.46 X10^3/ul (0.83-4.51); Mean Corpuscular Hgb 28.8 pg (27.0-32.0); Mean Corpuscular Volume 90.2 fL (81-99); Mean Platelet Vol. 9.4 fl (6.2-12.0); Monocyte# 0.75 X10^3/uL; Monocyte% 7.2 % (0-10); NRBC Flagged by Analyzer 0 % (0-5); Neutrophil # 7.96 X10^3/uL (2.7-7.7); Platelet Count 252 K/mm3 (150-450); RBC Distribution Width CV 12.7 % (11.6-14.6); RBC Distribution Width SD 41.7 fl (35.1-43.9); Red Blood Count 4.37 M/mm3 (4.2-5.4); White Blood Count 10.5 K/mm3 (4.4-11.0)
[2022-10-11 11:12] LABS: Anion Gap 1 (5-15); BUN 7 mg/dL (7-18); BUN/Creat Ratio 11.3 RATIO (10-20); Calcium,Total 8.9 mg/dL (8.5-10.1); Chloride 108 mmol/L (98-107); Creatinine, Serum 0.62 mg/dL (0.55-1.02); EST Glomerular Filtration Rate 105 mL/min (>60); Est Glom Filt Rate - Afr Amer 128 mL/min (>60); Estimated Creatinine Clearance 81.82 ml/min; Glucose 128 mg/dL (74-106); Potassium 4.2 mmol/L (3.5-5.1); Sodium Level 141 mmol/L (136-145)
--- NOTE | 2022-10-11 11:26 | PN_ITS ---
Subjective Subjective Patient was seen today for follow up on left ankle. She did have pain overnight, added gabapentin. At this time she relates pain is well controlled as long as she does not move leg, she did take Dilaudid. She relates left thigh is sore, she relates she thinks it is from a strained muscle. No fever, chills, nausea, or vomiting. Objective Data Objective Data Vital Signs: Vital Signs Temp Pulse Resp BP Pulse Ox O2 Del Method O2 Flow Rate 98.0 F 72 18 147/66 H 93 Room Air 2 10/11/22 10:15 10/11/22 10:15 10/11/22 10:15 10/11/22 10:15 10/11/22 10:15 10/11/22 10:15 10/09/22 20:00 Oxygen Flow Rate (L/min) [5] 4 Oxygen Flow Rate (L/min) [4] 6 Oxygen Flow Rate (L/min) [1 ( 4 Initial Baseline)] Oxygen Flow Rate (L/min) 2 Oxygen Delivery Method [5] Nasal Cannula Oxygen Delivery Method [4] Nasal Cannula Oxygen Delivery Method [3] Nasal Cannula Oxygen Delivery Method [2] Nasal Cannula Oxygen Delivery Method [1 ( Nasal Cannula Initial Baseline)] Oxygen Delivery Method Room Air Weight: 82 kg Body Mass Index (BMI) 32.0 Intake & Output: Intake and Output for Last 24 Hours 10/09/22 10/10/22 10/11/22 23:59 23:59 23:59 Intake Total 110 / 110 2373.33 / 2373.33 410 / 410 Output Total 1974 / 1974 1200 / 1200 Balance 110 / 110 398.33 / 398.33 -790 / -790 Lab / Micro Data Result Diagrams: 10/11/22 10:40 10/11/22 10:40 Labs: Laboratory Results - last 24 hr 10/10/22 11:15: POC Glucose 120 H 10/10/22 16:20: POC Glucose 165 H 10/10/22 22:01: POC Glucose 146 H 10/11/22 06:26: POC Glucose 125 H 10/11/22 10:40: WBC 10.5, RBC 4.37, Hgb 12.6, Hct 39.4, MCV 90.2, MCH 28.8, MCHC 32.0, RDW Std Deviation 41.7, RDW Coeff of Bambi 12.7, Plt Count 252, MPV 9.4, Immature Gran % (Auto) 0.700, Neut % (Auto) 76.0 H, Lymph % (Auto) 14.0 L, [place] % (Auto) 7.2, Eos % (Auto) 1.8, Baso % (Auto) 0.3, Absolute Neuts (auto) 8.0 H, Absolute Lymphs (auto) 1.46, Nucleated RBC % 0 10/11/22 10:40: Sodium 141, Potassium 4.2, Chloride 108 H, Carbon Dioxide 32.0, Anion Gap 1 L, BUN 7, Creatinine 0.62, Estim Creat Clear Calc 81.82, Est GFR (MDRD) Af Amer 128, Est GFR (MDRD) Non-Af 105, BUN/Creatinine Ratio 11.3, Glucose 128 H, Calcium 8.9 Physical Exam Narrative Left foot/ankle/leg splinted - splint is clean, dry and intact and appears appropriate at this time. She denies pain as long as she does not move the left foot or ankle. She relates to some pain to the anterior tight with squeeze, also some pain around the popiteal area - she relates she thinks it may be from the block. Otherwise, she is not complaining or having of any other calf pain. CFT < 2 seconds to the toes on the left foot. She is able to dorsiflex and plantarflex toes. She is resting comfortably in bed. Const alert, oriented x3 and no apparent distress Assessment & Plan Assessment/Plan (1) Ankle fracture, left: (2) Dislocation of ankle, left, closed: PLAN: Plan Evaluation performed. s/p ORIF left ankle on 10/09/22 - pain controlled at this time. Once pain controlled on oral pain medication ok to be discharged home. No weightbearing left foot, keep left foot elevated. Keep splint clean, dry and intact. Pain Management: Tylenol, Oxyir, and Dilaudid. Also Gabapentin has been added. DVT Prophylaxis: Lovenox 40mg subc daily. A venous doppler was ordered for left LE due to complaints of left thigh pain and pain to popliteal area. Hospitalist on consult for patient's hx of diabetes - appreciate assistance.
[2022-10-11 11:50] LABS: Bedside Glucose 107 mg/dL (74-106)
[2022-10-11] MEDS: Gabapentin 300 MG Capsule PO (14:05)
--- NOTE | 2022-10-11 15:47 | VDLE_ITS ---
Reason For Study: pain Procedure LEFT This is a venous duplex using B-mode, color GSV is normal. flow and spectral Doppler. CFV is compressible, spontaneous, phasic, Exam performed portable in patient room. competent, and demonstrates normal The exam was abbreviated due to the COVID 19 augmentation. protocol. FV is compressible, spontaneous, phasic, The exam was diagnostic. competent and demonstrates normal Limited study due to splint below the knee. augmentation. A preliminary report was called and/or faxed POP V is compressible, spontaneous, phasic, to PCU artist mannequin coloring. competent and demonstrates normal augmentation. T/P Trunk is compressible. VL/Venous Duplex US, Unilateral Interpretation Summary Deep veins of the left lower extremity are patent and compressible segmentally. There is no evidence of left lower extremity deep vein thrombosis. Valvular competence appears intac t within the proximal deep venous system on the left . The left great saphenous vein appears patent a nd compressible segmentally. The left posterior tibial vein and peroneal vein were not visualiz ed due to the presence of a splint. Ordering Physician: Keshawn Woodall Performed By: Sam Mcdaniel RVT
[2022-10-11 16:15] VITALS: BP 139/75; PULSE 72; RESP 18; TEMP 36.9; O2SAT 97
[2022-10-11 17:30] LABS: Bedside Glucose 146 mg/dL (74-106)
[2022-10-11 22:07] VITALS: BP 158/69; PULSE 70; RESP 16; TEMP 36.7; O2SAT 95
[2022-10-11] MEDS: metFORMIN (XR) 500 MG Tablet PO (22:07)
[2022-10-11 23:15] LABS: Bedside Glucose 164 mg/dL (74-106)
[2022-10-12 04:02] VITALS: BP 133/67; PULSE 75; RESP 14; TEMP 36.7; O2SAT 96
[2022-10-12] MEDS: Cefazolin 1 GM/50 ML BAG IV (06:15)
[2022-10-12] MEDS: Gabapentin 300 MG Capsule PO (06:19)
[2022-10-12 06:41] LABS: Bedside Glucose 130 mg/dL (74-106)
[2022-10-12 08:49] VITALS: BP 138/69; PULSE 76; RESP 16; TEMP 37.2; O2SAT 98
[2022-10-12] MEDS: oxyCODONE 5 MG Tablet 10 MG PO (08:53)
[2022-10-12] MEDS: Enoxaparin 40 MG/0.4 ML Syringe SC (08:54)
[2022-10-12 11:41] LABS: Bedside Glucose 110 mg/dL (74-106)
--- NOTE | 2022-10-12 12:28 | PCM.DC ---
Discharge Instructions Activity Discharge Activity: Use Walker and Use Crutches Weight Bearing Status: No weight bearing (No weightbearing left foot/ankle.) Keep extremity elevated above heart level: Left Leg (Keep left foot/ankle elevated for at least 50 minutes of every hour.) Dressing / Incision Call your doctor if your incision/area has: Continuous Slow Oozing, Sudden Increased Bleeding and Foul Smelling Discharge Call your doctor if you observe: Fever of 101 or Higher, Coldness, Increased Pain, Shortness of breath, Chest pain, Increased palpitations (irregular heartbeat), Calf discomfort and Uncontrolled pain Change Dressing in: do not change dressing Remove Dressing in: do not remove dressing Cleanse incision/area with: Keep Dressing Clean & Dry Follow Up Care Please Follow Up With: Keshawn Woodall DPM When: Follow up with Dr. Woodall at the [facility] in [place]: [address], [place] [address] Office number: [phone] Woodall on 10/17/2022 - call office to set up and confirm time for a morning appointment. Call [facility] if needed: [phone] Test Results: Test results from this visit will be discussed in further detail at your follow-up appointment, if applicable. Discharge Plan Admission Admit Date/Time: 10/08/22 23:49 Attending Provider: Keshawn Woodall Primary Care Provider: Care Physician,No Primary Consulting Providers: Dottie Rodriguez ; Marry Lynn ; Hal Shah ; Magda Wilkins ; Marii Coon ; Pat Alvarenga NP ; Jeffry Silva NP ; Nelda Adams Discharge Orders/Prescriptions Prescriptions: New oxycodone-acetaminophen [Percocet] 5-325 mg tablet 1 - 2 tab PO Q6H PRN (Reason: pain) 4 Days Qty: 24 0RF Eliquis 2.5 mg tablet 2.5 mg PO Q12H Qty: 60 0RF Continued progesterone micronized 200 mg capsule 200 mg QHS Label Comments: Take ONE capsule by mouth as directed at bedtime Ozempic metformin 500 mg QHS Referrals / Follow Up: Keshawn Woodall DPM [Med Staff - Active Staff] - 3-5 Days Care Physician,No Primary [Primary Care Provider] - [facility] Doctor,Out of [Non-Staff] -
--- NOTE | 2022-10-12 12:32 | PCM.DC.SUM ---
Providers Date of Admission: 10/08/22 Primary Care Physician: Meryl Primary Care Phys Consultations 10/09/22 00:00 Consult: Hospitalist Routine Consulting Provider: [facility] Reason for Consult: pre op evaluation EMERGENT Consult: No MD Notified: Yes Date Notified: 10/09/22 Time Notified: 00:00 Method of Notification: Text Reason For Visit: ANKLE FRACTURE Diagnosis Discharge Diagnosis (1) Dislocation of ankle, left, closed: Status: Acute Code(s): S93.05XA - Dislocation of left ankle joint, initial encounter Plan Evaluation performed. s/p ORIF left ankle on 10/09/22 - pain controlled at this time. Ok to discharge home with oral pain medication. No weightbearing left foot, keep left foot elevated. Keep splint clean, dry and intact. Pain Management: Tylenol, Oxyir, Gabapentin, and Dilaudid. Patient will be discharged home with Percocet 5/325mg tab, 1-2 tabs PO q 6 hours prn pain. DVT Prophylaxis: Lovenox 40mg subc daily. Will discharge home on oral Apixaban 2.5mg PO q 12 hours. A venous doppler was ordered for left LE due to complaints of left thigh pain and pain to popliteal area. I was informed this was negative for DVT. Medications at Discharge Home Medications Ozempic weight loss 10/09/22 metformin 500 mg QHS prediabetes 10/09/22 progesterone micronized 200 mg capsule 200 mg QHS hormone replacement 10/09/22 apixaban 2.5 mg tablet (Eliquis) 2.5 mg PO Q12H help prevent a blood clot #60 tabs 10/12/22 oxycodone-acetaminophen 5 mg-325 mg tablet (Percocet) 1 - 2 tab PO Q6H PRN pain 4 days #24 tabs 10/12/22 Hospital Course Summary of Care Provided Hospital Course: Patient was admitted for bimalleous ankle fx of the left LE, she was admitted due to pain and need for surgery. She underwent ORIF on 10/09/22 without complication. Pain is now controlled and ok to be discharged. Physical Exam Narrative Left foot/ankle/leg splinted - splint is clean, dry and intact and appears appropriate at this time. She denies pain as long as she does not move the left foot or ankle. No complaints of calf pain at this time. CFT < 2 seconds to the toes on the left foot. She is able to dorsiflex and plantarflex toes. She is resting comfortably in bed. Const alert, oriented x3 and no apparent distress Weight / BMI Weight Weight: 82 kg Body Mass Index (BMI) 32.0 ABG / Lab / Microbiology Data Result Diagrams: 10/11/22 10:40 10/11/22 10:40 Laboratory: Laboratory Results - last 24 hr 10/11/22 16:43: POC Glucose 146 H 10/11/22 22:51: POC Glucose 164 H 10/12/22 06:21: POC Glucose 130 H 10/12/22 11:20: POC Glucose 110 H Radiography Diagnostic Testing: Radiology Impression Venous Doppler Study 10/11/22 15:47 Interpretation Summary Deep veins of the left lower extremity are patent and compressible segmentally. There is no evidence of left lower extremity deep vein thrombosis. Valvular competence appears intact within the proximal deep venous system on the left . The left great saphenous vein appears patent and compressible segmentally. The left posterior tibial vein and peroneal vein were not visualized due to the presence of a splint. Ordering Physician: Keshawn Woodall Performed By: Sam Mcdaniel Silvia D/C Instructions Weight Bearing Status: No weight bearing (No weightbearing left foot/ankle.) Keep extremity elevated above heart level: Left Leg (Keep left foot/ankle elevated for at least 50 minutes of every hour.) Call your doctor if your incision/area has: Continuous Slow Oozing, Sudden Increased Bleeding and Foul Smelling Discharge Call your doctor if you observe: Fever of 101 or Higher, Coldness, Increased Pain, Shortness of breath, Chest pain, Increased palpitations (irregular heartbeat), Calf discomfort and Uncontrolled pain Cleanse incision/area with: Keep Dressing Clean & Dry Please Follow Up With: Keshawn Woodall DPM When: Follow up with Dr. Woodall at the [facility] in [place]: [address], [place] [address] Office number: [phone] Woodall on 10/17/2022 - call office to set up and confirm time for a morning appointment. Call [facility] if needed: [phone] Meaningful Use Info Meaningful Use Diagnoses (Choose all that apply): None applicable Discharge Plan Admission Admit Date/Time: 10/08/22 23:49 Attending Provider: Keshawn Woodall Primary Care Provider: Care Physician,No Primary Consulting Providers: Dottie Rodriguez ; Marry Lynn ; Hal Shah ; Magda Wilkins ; Marii Coon ; Pat Alvarenga FRAME TRIMMER ; Jeffry Silva NP ; Nelda Adams Discharge Orders/Prescriptions Prescriptions: New oxycodone-acetaminophen [Percocet] 5-325 mg tablet 1 - 2 tab PO Q6H PRN (Reason: pain) 4 Days Qty: 24 0RF Eliquis 2.5 mg tablet 2.5 mg PO Q12H Qty: 60 0RF Continued progesterone micronized 200 mg capsule 200 mg QHS Label Comments: Take ONE capsule by mouth as directed at bedtime Ozempic metformin 500 mg QHS Referrals / Follow Up: Keshawn Woodall DPM [Med Staff - Active Staff] - 3-5 Days Care Physician,No Primary [Primary Care Provider] - [facility] [address] Doctor,Out of [Non-Staff] -
--- NOTE | 2022-10-12 12:42 | NURSING ---
Verbal orders to give pt a dose of Dilaudid before she is discharged
[2022-10-12 12:58] VITALS: BP 142/71; PULSE 82; RESP 18; TEMP 37.3; O2SAT 96
[2022-10-12] MEDS: HYDROmorphone 1 MG/ML Syringe IV (13:05)
== END 2022-10-12 14:36 | disposition home or self-care (01) | DRG 494 ==
LOC: ED 10-09 00:03 → PCU 10-09 03:21
PROVIDERS: Internal Medicine; Admitting Provider Podiatrist; Emergency Provider Emergency Medicine; Visit Provider Podiatrist
PROC: 0QSH04Z Reposition Left Tibia with Internal Fixation Device, Open Approach (ICD-10-PCS; principal; 2022-10-09 13:45)
DX: S82.842A Displaced bimalleolar fracture of left lower leg, initial encounter for closed fracture (principal); E66.9 Obesity, unspecified; W10.9XXA Fall (on) (from) unspecified stairs and steps, initial encounter; R73.03 Prediabetes; Z79.84 Long term (current) use of oral hypoglycemic drugs; Y93.9 Activity, unspecified; Y92.009 Unspecified place in unspecified non-institutional (private) residence as the place of occurrence of the external cause; Z68.32 Body mass index [BMI] 32.0-32.9, adult
CPT/HCPCS: 36415; 73600; 73610; 76000; 80048; 80053; 82306; 82962; 83036; 85025; 93005; 93971; 97110; 97162; 97165; 99152; 99284; C1776; J7030; A4216; J2405

== ENCOUNTER 2023-02-19 17:30 | Outpatient (RCR) | payer OTHER, SELFPAY ==
--- NOTE | 2023-01-12 14:02 | HP.PTEVAL_ITS ---
Patient's Visit Information MEGAN CAMPA is a 58 year old F referred to Physical Therapy by Dr. Keshawn Woodall DPM with a diagnosis of L ankle ORIF 10/09/22. Date of Evaluation: 01/12/23 Physical Therapist: James Monsalve, PT, ATC - Visit Plan Frequency: 1x/Week Duration: 4-6 Weeks Plan: L ankle PROM/mobs, stretcfhing and strengthening, balance and proprio, bike, and HEP - Subjective DOS: 10/09/22. Pt reports she was descending stairs when she slipped on the last 2 and dislocated/fractured her L ankle. Pt reports she had surgery to insert plates and screws into her L ankle. Pt reports she went 8 weeks NWBing in a splint, and now is WBTt in her cam boot. Pt reports she is still not able to FWB on L LE due to a stabbing pain that occurs. Pt reports her pain is getting better, but she feels like her improvement has become stuck because she is unable to move her L foot. Pt reports her L foot and ankle is numb only around her incisions and along the top of her foot. Pt reports no sleep difficulty at this time secondary to pain. Pt has stairs at this time but has to negotiate them sliding on her rear end. 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 1/10 pain at rest, 9/10 ar worst (sharp pain that occurs when she attempts to stand) - Pain L ankle Pain Intensity (Out of 10): 1 Pain Intensity Range: 9 - Objective Neuro: B LE sensation is WNL to light touch with exceptions to maryanne-incisional. Girth: L ankle 54 cm, R ankle 53 cm. ROM: R ankle DF= 10, PF= 70 Degrees; L ankle DF= -25, PF= 50 degrees. MMT: R ankle DF= 29, PF= 41 #F; L ankle DF= 8, PF= 4 #F. Gait: Pt is able to ambulate 140 feet to eval room PWBing and with use of WW - Balance/Special Test Scores Lower Extremity Functional Score: 16 - Goals Goal 1:: Decrease L ankle pain x 50% to aid with standing tolerance Goal Time Frame: 4-6 Weeks Goal 2:: Increase L ankle DF ROM x 20 degrees to aid with restoring a more normalized gait pattern Goal Time Frame: 4-6 Weeks Goal 3:: Increase L ankle strength x 10 #F to aid with restoring a more normalized gait pattern Goal Time Frame: 4-6 Weeks Goal 4:: I with HEP Goal Time Frame: 4-6 Weeks - Rehabilitation Potential Physical Therapy Diagnosis: Pt has L ankle pain, weakness, and limited ROM secondary to L ankle Fx Rehabilitation Potential: Good - Anticipated Interventions Patient/Client Instruction: Educate patient on: Condition, Plan of Care For the Purpose of:: To improve self management Therapeutic Exercise to Include: Strength training, Endurance training, Balance training, Flexibilty training, Gait and locomotor training, Passive ROM, Active ROM For the Purpose of:: To decrease pain, To increase ROM, To improve muscle performance and motor function Cryotherapy (ice pack, ice massage): Yes For the Purpose of:: To decrease pain Thank you for the opportunity to evaluate your patient. For Medicare and Medicare HMO plans, please review the plan of care and approve it. It will need to be FAXED BACK to us at [phone] for Medicare purposes. For Medicare only, by signing this I certify the plan of care. Please let me know if there are questions or concerns regarding this plan of care. Physician Signature: Date:
--- NOTE | 2023-06-17 13:25 | HP.PT.NRP ---
Patient Information Patient Information: MEGAN CAMPA was seen in my office for initial evaluation on 01/12/23. The following Plan of Care was established for this patient: POC Established Initial Frequency: 1x/Week Initial Duration: 4-6 Weeks Anticipated Interventions Patient/Client Instruction: Educate patient on: Condition and Plan of Care For the Purpose of:: To improve self management Therapeutic Exercise to Include: Strength training, Endurance training, Balance training, Flexibilty training, Gait and locomotor training, Passive ROM and Active ROM For the Purpose of:: To decrease pain, To increase ROM and To improve muscle performance and motor function Cryotherapy (ice pack, ice massage): Yes For the Purpose of:: To decrease pain Last Seen Last Seen: This patient was last seen in our office . Pertinent comments regarding their Physical therapy will appear below: Pt was treated for 6 PT visits for L ankle pain through the date of 02/19/23. Pt has not returned through this date and is discontinued at this time. At this point I will be discontinuing this patient from physical therapy. I would be happy to see this patient again in the future if found appropriate by the physician. Thank you! James Monsalve, PT, ATC Balance/Gait/Functional tests Balance/Special Test Scores Lower Extremity Functional Score: 16
== END 2023-02-19 19:00 | disposition home or self-care (01) ==
LOC: PT 17:30
PROVIDERS: Referring Provider Podiatrist; Visit Provider Podiatrist
DX: S82.892D Other fracture of left lower leg, subsequent encounter for closed fracture with routine healing (principal)
CPT/HCPCS: 97110; 97140; 97161

== ENCOUNTER → 2023-02-19 | Outpatient (CLI) | payer OTHER, SELFPAY ==
[2023-02-19 16:12] LABS: AST(SGOT) 16 U/L (15-37); Alanine Aminotransfer ALT/SGPT 31 U/L (13-56); Albumin, Serum 3.8 g/dL (3.2-5.0); Alkaline Phosphatase 101 U/L (45-117); Anion Gap 8 (5-15); BUN 13 mg/dL (7-18); BUN/Creat Ratio 17.5 RATIO (10-20); Calcium,Total 8.8 mg/dL (8.5-10.1); Chloride 107 mmol/L (98-107); Cholesterol 192 mg/dL (200); Creatinine, Serum 0.74 mg/dL (0.55-1.02); EST Glomerular Filtration Rate 85 mL/min (>60); Est Glom Filt Rate - Afr Amer 103 mL/min (>60); Globulin 3.8 g/dL (2.2-4.2); Glucose 122 mg/dL (74-106); High Density Lipoprotein 50 mg/dL; Protein, Total 7.6 g/dL (6.4-8.2); Sodium Level 137 mmol/L (136-145); Thyroid Stim Hormone (TSH) 1.46 uIU/mL (0.358-3.74); Triglycerides 210 mg/dL; Very Low Density Lipoprotein 42 mg/dL (5-40)
[2023-02-19 16:36] LABS: Microalbumin,Random Urine 63.3 mg/L (NO RANGE EST.); Microalbumin:Creatinine Ratio 21.5 mg/g CRE (<30 mg/g CRE)
== END | disposition home or self-care (01) ==
LOC: MFPLAB 11:35
PROVIDERS: PCP Family Medicine; Visit Provider Family Medicine
DX: R73.03 Prediabetes (principal); I10 Essential (primary) hypertension
CPT/HCPCS: 36415; 80053; 80061; 82043; 82570; 83036; 84443

== ENCOUNTER → 2023-02-25 | Outpatient (CLI) | payer OTHER, SELFPAY ==
--- NOTE | 2023-02-25 08:21 | CT_ITS ---
INDICATION: LEFT ANKLE FX. SYMPTOMATIC HARDWARE, SURGERY IN OCT 2022 EXAMINATION: CT BONE - CT Lower Extremity W/O Contrast Injection TECHNIQUE: Helically acquired images were obtained of the left ankle. 2-D reformats were performed by the technologist. A radiation dose optimization technique was used for this scan. IV Contrast dosage and agent: None. COMPARISON: None. FINDINGS: SOFT TISSUES: No soft tissue swelling or gas. No radiopaque foreign body. BONES/JOINTS: Bimalleolar ORIF in anatomic alignment without lucency to suggest loosening. No new fracture. There is calcification in the lateral ankle mortise. Normal alignment. Multifocal bone demineralization. CT/Extremity Lower without Contra IMPRESSION: Calcification in the lateral ankle mortise. Expected appearance of bimalleolar fracture ORIF with finding of disuse bone demineralization. Electronically Signed: Miller Jarrell MD at 18:00 EDT ,
== END | disposition home or self-care (01) ==
LOC: CT 08:17
PROVIDERS: PCP Family Medicine; Referring Provider Podiatrist; Visit Provider Podiatrist
DX: S82.892A Other fracture of left lower leg, initial encounter for closed fracture (principal)
CPT/HCPCS: 73700

== ENCOUNTER → 2023-04-01 | Outpatient (CLI) | payer OTHER, SELFPAY ==
--- NOTE | 2023-04-01 11:35 | BI_ITS ---
MAMMOGRAPHY - BILATERAL SCREENING REASON FOR EXAM: Female, 58 years old. Routine annual screening examination. PERTINENT HISTORY: Sister with breast cancer. Mother with breast cancer. Aunt with breast cancer. TECHNIQUE: Digital bilateral breast [place] (3D mammographic acquisition) in the CC and MLO projections. 2-D mediolateral oblique (MLO) and craniocaudad (CC) views of both breasts were obtained. CAD: Full Field Digital Mammography with Computer Added Detection was performed. COMPARISON: No comparison mammograms available at this time. If any prior films become available, an addendum to this report can be generated. FINDINGS: Breast Composition: The breasts are heterogeneously dense, which may obscure small masses. There are no dominant masses or suspicious calcifications. No other significant abnormalities are identified. BI/SCRN MAMM (CAD)W/[place] BILAT IMPRESSION: Negative screening mammogram. Yearly followup mammogram recommended. (A) ASSESSMENT CATEGORY: BIRADS Category 1: Negative. A letter regarding these results will be sent to the patient by the facility within 30 days. Approximately 10% of breast cancers are not detected by mammography. A normal mammogram should not delay biopsy of a clinically suspicious abnormality. [id number] Electronically Signed: Romeo Kong MD at 14:12 EDT ,
--- NOTE | 2023-04-01 11:40 | BD_ITS ---
STUDY: DUAL ENERGY X-RAY ABSORPTIOMETRY / DXA REASON FOR EXAM: Female, 58 years old. 627.8Menopausal postmenopausal BONE DENSITY REASON FOR EXAM TECHNIQUE: Bone Mineral Density (BMD) measurements of lumbar spine and bilateral hips were obtained. COMPARISON: None. FINDINGS: Lumbar Spine (L1-L4): g/cm2 (0.928) / T-score (-0.1) / Z-score (0.8) Findings are suggestive of normal bone density with a low fracture risk. Left Femur Total: g/cm2 (0.840) / T-score (-0.8) / Z-score (0.1) Left Femoral Neck: g/cm2 (0.745) / T-score (-0.9) / Z-score (0.3) Right Femur Total: g/cm2 (0.928) / T-score (-0.1) / Z-score (0.8) Right Femoral Neck: g/cm2 (0.788) / T-score (by 0.5) / Z-score (0.7) BD/Dexa Bone Density Study IMPRESSION: The patient is considered normal as outlined below according to World Bo Organization (WHO) criteria with a low fracture risk. Reference Information: The T-score is the number of standard deviations above or below the standard which is normal for young adults at their peak bone mineral density. The World Health Organization (WHO) interprets the T-scores as follows: Above -1 Normal bone density Between -1 and -2.5 Osteopenia Equal to / or below -2.5 Osteoporosis As a practical clinical guideline, osteopenia may be graded as follows: Mild -1 through -1.5 Moderate -1.6 through -2.0 Severe -2.1 through -2.4 The Z-score is the number of standard deviations above or below age-matched controls. A Z-score of less than -1.5 would be considered abnormal. References: 1. NIH Osteoporosis and Related Bone Diseases www osteo.org 2. International Society for Clinical Densitometry www iscd.org 3. National Osteoporosis Foundation www nof.org Electronically Signed: Romeo Kong MD at 13:36 EDT ,
== END | disposition home or self-care (01) ==
LOC: OPBD 11:34
PROVIDERS: PCP Family Medicine; Referring Provider Family Medicine; Visit Provider Family Medicine
DX: Z12.31 Encounter for screening mammogram for malignant neoplasm of breast (principal); Z78.0 Asymptomatic menopausal state; Z80.3 Family history of malignant neoplasm of breast
CPT/HCPCS: 77063; 77067; 77080

== ENCOUNTER → 2023-04-16 | Outpatient (CLI) | payer OTHER, SELFPAY ==
[2023-04-16 17:39] LABS: Absolute Lymphocyte Count 2.23 X10^3/uL (0.83-4.51); Absolute Neutrophil Count 8.7 X10^3/uL (2.0-7.7); Basophil# 0.05 X10^3/uL; Basophil% 0.4 % (0-1); Eosinophil# 0.09 X10^3/uL; Eosinophils% 0.8 % (0-5); Hematocrit 43.7 % (37-47); Hemoglobin 13.9 g/dL (12.0-15.0); Lymphocyte # 2.23 X10^3/ul (0.83-4.51); Lymphocyte % 18.9 % (19-41); Mean Corp Hgb Conc 31.8 g/dL (32-36); Mean Corpuscular Hgb 29.7 pg (27.0-32.0); Mean Corpuscular Volume 93.4 fL (81-99); Monocyte# 0.66 X10^3/uL; Monocyte% 5.6 % (0-10); NRBC Flagged by Analyzer 0 % (0-5); Neutrophil # 8.69 X10^3/uL (2.7-7.7); Neutrophil % 73.9 % (47-70); Platelet Count 336 K/mm3 (150-450); RBC Distribution Width CV 13.2 % (11.6-14.6); RBC Distribution Width SD 44.9 fl (35.1-43.9); Red Blood Count 4.68 M/mm3 (4.2-5.4); White Blood Count 11.8 K/mm3 (4.4-11.0)
[2023-04-16 18:05] LABS: ALB/GLOB Ratio 1.1 RATIO (0.9-2.4); AST(SGOT) 15 U/L (15-37); Alanine Aminotransfer ALT/SGPT 23 U/L (13-56); Albumin, Serum 3.7 g/dL (3.2-5.0); Alkaline Phosphatase 117 U/L (45-117); Anion Gap 10 (5-15); BUN 13 mg/dL (7-18); BUN/Creat Ratio 15.4 RATIO (10-20); Calcium,Total 8.7 mg/dL (8.5-10.1); Chloride 107 mmol/L (98-107); Creatinine, Serum 0.85 mg/dL (0.55-1.02); EST Glomerular Filtration Rate 73 mL/min (>60); Est Glom Filt Rate - Afr Amer 88 mL/min (>60); Globulin 3.3 g/dL (2.2-4.2); Glucose 110 mg/dL (74-106); Potassium 4.4 mmol/L (3.5-5.1); Sodium Level 139 mmol/L (136-145)
== END | disposition home or self-care (01) ==
PROVIDERS: PCP Family Medicine; Visit Provider Nurse Practitioner Family
DX: Z01.818 Encounter for other preprocedural examination (principal)
CPT/HCPCS: 36415; 80053; 85025

== ENCOUNTER 2023-04-24 05:59 | Day surgery (SDC) | payer OTHER, SELFPAY ==
[2023-04-24] VITALS (8 sets, daily range): BP systolic 117–161; BP diastolic 48–87; PULSE 71–110; RESP 16–18; TEMP 36.3–36.8; O2SAT 93–100; BMI 32.1
[2023-04-24] MEDS: Lactated Ringers 1,000 ML 15 ML IV (06:36)
[2023-04-24] MEDS: Cefazolin 2 GM in 0.9% Normal Saline 100 ML IV (07:27)
--- NOTE | 2023-04-24 07:30 | RAD_ITS ---
STUDY: X-RAY - LEFT ANKLE REASON FOR EXAM: Female, 58 years old. Removal of ankle hardware. TECHNIQUE: 2 intraoperative digital documentation view(s) of the ankle. COMPARISON: Left ankle x-rays dated October 09, 2022. FINDINGS: 2 intraoperative digital documentation views show removal of hardware. 35 images acquired and 2 saved. Total exposure time 1 minute and 3 seconds. Longest exposure 5 seconds. Total DAP 10.6988 cGy/cm2. Total Air Kerma 0.6368 mGy. RAD/Ankle min 3 Views IMPRESSION: Intraoperative digital documentation views as described. Electronically Signed: Dane Vo MD at 11:35 EDT ,
[2023-04-24] MEDS: Lidocaine 1%/Epi 1:100 (30ml) 30 ML VIAL (07:40)
[2023-04-24] MEDS: Bupivacaine Mpf 0.5% 30 ML VIAL (08:50)
--- NOTE | 2023-04-24 09:15 | DCINST_ITS ---
Discharge Instructions Diet Discharge Diet: Light diet - advance as tolerated Activity Discharge Activity: May Not Drive Weight Bearing Status: Weight bearing as tolerated Keep extremity elevated above heart level: Left Leg (Keep left foot elevated as much as possible.) Dressing / Incision Call your doctor if your incision/area has: Continuous Slow Oozing, Sudden Increased Bleeding and Foul Smelling Discharge Call your doctor if you observe: Fever of 101 or Higher, Shortness of breath, Chest pain, Increased palpitations (irregular heartbeat), Calf discomfort and Uncontrolled pain Change Dressing in: 3 days (Cleanse with normal soap and water. Apply dry gauze and chaparrita dressing - change daily starting on 04/27/23) Cleanse incision/area with: Soap & Water Follow Up Care Please Follow Up With: Keshawn Woodall DPM When: 05/04/23 at office, sooner if needed. Test Results: Test results from this visit will be discussed in further detail at your follow- up appointment, if applicable. Discharge Plan Admission Attending Provider: Keshawn Woodall Primary Care Provider: Gaurang Romero Discharge Orders/Prescriptions Prescriptions: New hydrocodone-acetaminophen 5-325 mg tablet 1 - 2 tab PO Q6H PRN (Reason: pain) 3 Days Qty: 24 0RF No Action progesterone micronized 200 mg capsule 200 mg PO QHS Patient Comments: Take ONE capsule by mouth as directed at bedtime metformin 500 mg PO QHS trazodone 100 mg tablet 100 mg PO QHS Mounjaro 2.5 mg/0.5 mL pen injector 2.5 mg subcut QWEEK atorvastatin 10 mg tablet 10 mg PO QHS telmisartan 20 mg tablet 20 mg PO QHS BiEst topical QHS Referrals / Follow Up: Gaurang Romero MD [Primary Care Provider] - Disposition Disposition (needs filled in before D/C Order can be placed): Home, Self Care
--- NOTE | 2023-04-24 09:15 | PCM.OPRPT ---
Report of Operation Date of Procedure: 04/24/23 Pre-Operative Diagnosis: Symptomatic hardware left foot Post-Operative Diagnosis: Same Surgery/Procedure Performed:: Hardware removal left ankle Surgeon: Keshawn Woodall account underwriter: None Type of Anesthesia: General and Local Specimen's removed: None Estimated Blood Loss (mL): 20mL Description of Procedure: Indications: 58 year old female with history of left ankle fracture s/p ORIF on 10/09/2022. There has been osseous healing, however there is symptomatic hardware and adhesions to the ankle which is causing pain and limited range of motion which is preventing full ambulation and function of the foot/ankle. We discussed the options and she would like to proceed with the procedure today. Reviewed possible benefits vs risks, goals, and expectations. The consent forms were reviewed with her and she freely signed them. Operative procedure: Patient was brought back to the operating room and was placed on the operating room table in the supine position. She was carefully secured to the operating room table with a safety belt around her waist. A timeout was performed and she was properly identified and surgical plan confirmed. She received general anesthesia per the anesthesia team. A well padded pneumatic tourniquet was applied around the left ankle but was not inflated for this procedure. A total of 17mL of 1% Lidocaine with 1:200,000 epi was given as a local block to the ankle after the overlying skin was cleansed with 70% Isopropyl alcohol. The left foot/ankle and leg were scrubbed, prepped and draped in the usual aseptic fashion. A skin incision was made to the lateral ankle using a 15 blade over the previous incision site. Dissection was completed down to the plate and screws of the lateral malleolus. They were identified and removed using the appropriate screwdriver. The plate and screws as well as the lateral tightrope button was removed in toto without complication. The bone was noted to be healed. A skin incision was made to the medial ankle using a 15 blade over the previous incision site. Dissection was completed down to the screws and kwire of the medial malleolus. They were identified and removed using the appropriate screwdriver and also the kwire was removed using a hemostat. Also the medial button of the tightrope was removed and the associated fiberwire was removed as well. All hardware was removed in toto without complication. The medial malleolus was healed. The ankle was put through range of motion, there were adhesions preventing full dorsiflexion. There was less than 0 degrees of ankle dorsiflexion with knee flexed and extended. The adhesions were released via dorsiflexion under anesthesia in which a normal dorsiflexion was obtained of +10 degrees of ankle dorsiflexion with knee extended and >10 degrees with knee flexed. Intraoperative fluoroscopy was obtained which confirmed hardware removal without complication. The sites were flushed out with copious amounts of normal saline solution. The sites were stable. The incisions were reapproximated using 3-0 Vicryl and 4-0 Monocryl. A total of 10mL of 0.25% Bupivacaine plain to the surgical sites. A dressing was applied which consisted for Betadine adpatic, 4x4 gauze, kerlix and chaparrita dressing. Bleeding was controlled, there was no significant blood loss. She tolerated the above procedure well and anesthesia well with no complication. She was transported from the operating room to the recovery room with vital signs stable and in good condition. Post operative orders were placed. Post operative left ankle xrays obtained in recovery room and were reviewed - which confirmed hardware removal without complication. A night splint was dispensed for her to use when at rest to help maintain dorsiflexion post operatively. [place] 5mg/325mg tab, 1-2 tabs, by mouth every 6 hours was prescribed. Also ok to remove dressing in 3 days - cleanse with normal soap and water, apply dry gauze and chaparrita - change daily. Do home range of motion ankle exercises daily as well. Also ok to put limited weightbearing on left ankle with CAM Walker boot on, and assisted with walker. Elevate foot as much as possible otherwise. This was discussed with her and her . Follow up 10 days, sooner if needed. Grafts/Implants Used: None Complications None
--- NOTE | 2023-04-24 09:30 | RAD_ITS ---
STUDY: X-RAY - LEFT ANKLE REASON FOR EXAM: Female, 58 years old. Postoperative evaluation. Removal of distal lower extremity hardware. TECHNIQUE: 3 view(s) of the ankle. COMPARISON: Left ankle x-rays dated October 09, 2022. FINDINGS: Medial malleolar fixation and lateral plate and screw fixation of the distal lower extremity has been removed. Stable osteoarthritic changes and calcaneal spurs. Diffuse soft tissue swelling. RAD/Ankle min 3 Views IMPRESSION: Removal of hardware with diffuse soft tissue swelling. No complications. Electronically Signed: Dane Vo MD at 9:43 EDT ,
== END 2023-04-24 12:00 | disposition home or self-care (01) ==
LOC: SDC 06:00 → AC 06:01
PROVIDERS: PCP Family Medicine; Referring Provider Podiatrist; Visit Provider Podiatrist
PROC: (CPT 20680; principal; 2023-04-24 07:15)
DX: M25.579 Pain in unspecified ankle and joints of unspecified foot (principal)
CPT/HCPCS: 20680; 73610; 76000; J7120; J2405

== ENCOUNTER → 2023-08-04 | Outpatient (CLI) | payer OTHER, SELFPAY ==
[2023-08-09 09:07] LABS: HPV APTIMA, High Risk Negative (Negative)
[2023-08-10 13:25] LABS: HPV Reflexed? YES, CHARGE PATIENT
== END | disposition home or self-care (01) ==
LOC: LABSPEC 15:09
PROVIDERS: PCP Family Medicine; Visit Provider Family Medicine
DX: Z12.4 Encounter for screening for malignant neoplasm of cervix (principal)
CPT/HCPCS: 87624; 88175; G0145

== ENCOUNTER 2023-08-10 12:46 | Day surgery (SDC) | payer OTHER, SELFPAY ==
[2023-08-10 13:08] VITALS: BP 137/76; PULSE 74; RESP 16; TEMP 36.5; O2SAT 98; BMI 28.8
[2023-08-10] MEDS: Lactated Ringers 1,000 ML 15 ML IV (13:14)
[2023-08-10 13:25] LABS: Bedside Glucose 123 mg/dL (74-106)
--- NOTE | 2023-08-10 13:43 | H&P.OPEN ---
HPI - General HPI Narrative MEGAN CAMPA, is a 58 F who presents for screening colonoscopy. She denies any abdominal pain or blood in the stool. She has never had a colonoscopy in the past. She has no family history of colon cancer. [facility] Medical History (Updated 08/07/23 @ 10:58 by Hasmukh Pickard) Ambulates with cane delivery delivered Depression Diabetes Fracture of left ankle HTN (hypertension) Non-smoker Post-menopausal Pre-diabetes Walker as ambulation aid Wears contact lenses Wears glasses Home Medications progesterone micronized 200 mg capsule 200 mg PO QHS hormone replacement 10/09/22 [History Last Taken Unknown] BiEst 1 dose topical QHS 04/17/23 [History Last Taken Unknown] atorvastatin 10 mg tablet 10 mg PO QHS 04/17/23 [History Last Taken Unknown] telmisartan 20 mg tablet 20 mg PO QHS 04/17/23 [History Last Taken Unknown] tirzepatide 2.5 mg/0.5 mL subcutaneous pen injector (Mounjaro) 2.5 mg subcut QWEEK 04/17/23 [History Last Taken Unknown] trazodone 100 mg tablet 100 mg PO QHS 04/17/23 [History Last Taken Unknown] metformin 500 mg tablet 500 mg PO HS 08/07/23 [History Last Taken Unknown] omega-3 fatty acids-fish oil 360 mg-1,200 mg capsule (Fish Oil) 1 cap PO DAILY 08/07/23 [History Last Taken 08/06/23] sertraline 50 mg tablet 50 mg PO DAILY 08/07/23 [History Last Taken 08/10/23] turmeric 400 mg capsule 400 mg PO 08/07/23 [History Last Taken Unknown] Allergy/AdvReac Type Severity Reaction Status Date / Time Qvneprj-UBH-QzW Reductase AdvReac Cough Verified 08/10/23 13:06 Inhibitor Surgical History History of tonsillectomy Hx of appendectomy S/P LASIK surgery of both eyes Social History Smoking Status: Never smoker Past Medical/Surgical History Planned Operation Planned Operative Procedure/s: COLONOSCOPY Previous Hospitalizations/Surgeries HX Hospitalizations: Yes Any Problems With Anesthesia: No You/Your Family Experience Fever (Hyperthermia) With Anes: No Cholinesterase deficiency: No Cardiovascular Hx Hypertension: No Respiratory Hx Sleep Apnea: No CPAP: No Hx Respiratory Tract Infection/Cold (presently): No Do You Snore Loudly (louder than talking or can be heard): No Do You Often Feel Tired/ Fatigued/ Sleepy Dring Daytime?: No Has Anyone Observed You Stop Breathing During Sleep?: No Result (for STOP score): Negative Smoking Status: Never smoker Neurological Does patient have nerve stimulator: No Reproduction : No Miscellaneous Recent Exposure to Contagious Disease: No Allergies Wqawcip-ZST-BcB Reductase Inhibitor Adverse Reaction (Verified 08/10/23 13:06) Cough Vital Signs Vital Signs Vital Signs: 08/10/23 13:08 08/10/23 13:08 Temperature 97.7 F L Temperature Source Temporal Pulse Rate 74 Respiratory Rate 16 Respiratory Pattern Normal Blood Pressure 137/76 H Blood Pressure Mean 96 Blood Pressure Source Monitor Blood Pressure Position Semi-Fowlers Blood Pressure Location Left Arm Pulse Ox 98 Oxygen Delivery Method Room Air Weight Weight: 167 lb 8.821 oz Body Mass Index (BMI) 28.8 Physical Exam Const alert and oriented x3 HEENT normocephalic Eyes PERRL Resp normal respiratory effort and normal air movement Cardio regular rate and regular rhythm GI soft to palpation, non-tender and non-distended Extremity normal to inspection Assessment & Plan Assessment/Plan (1) Encounter for screening for malignant neoplasm of colon: PLAN: I explained endoscopy in detail to the patient. I explained the risks including but not limited to stroke or heart attack with anesthesia, perforation of the GI tract, bleeding, infection. I explained that any of these could necessitate further emergency surgery. The patient understands and all questions were answered sufficiently. The patient wishes to proceed with procedure. Santiago Kumar MD Pager: [facility] [address] [place] [address], [address] [place] [address] Office: Surgery Risks - Colonoscopy Risks Include but are not Limited To: Risks include but are not limited to: Bleeding, perforation requiring further surgery, inability to complete colonoscopy requiring barium enema.
--- NOTE | 2023-08-10 14:13 | OP.COLON_ITS ---
Patient Name: Valarie Tinajero Procedure Date: 08/10/2023 1:47 PM Date of : 1965 Age: 58 Procedure: Colonoscopy Indications: Screening for colorectal malignant neoplasm Providers: Santiago Kumar MD Medicines: Monitored Anesthesia Care Patient Profile: This is a 58 year old female. Refer to note in patient chart for documentation of history and physical. Last Colonoscopy: none. The patient's first colonoscopy is today. Complications: No immediate complications. Procedure: Pre-Anesthesia Assessment: - Prior to the procedure, a History and Physical was performed, and patient medications and allergies were reviewed. The patient's tolerance of previous anesthesia was also reviewed. The risks and benefits of the procedure and the sedation options and risks were discussed with the patient. All questions were answered, and informed consent was obtained. Prior Anticoagulants: The patient has taken no anticoagulant or antiplatelet agents. After reviewing the risks and benefits, the patient was deemed in satisfactory condition to undergo the procedure. After I obtained informed consent, the scope was passed under direct vision. Throughout the procedure, the patient's blood pressure, pulse, and oxygen saturations were monitored continuously. The Colonoscope was introduced through the anus and advanced to the cecum, identified by appendiceal orifice and ileocecal valve. The colonoscopy was performed without difficulty. The patient tolerated the procedure well. The quality of the bowel preparation was good. The ileocecal valve, appendiceal orifice, and rectum were photographed. Scope In: 1:57:08 PM Scope Withdrawal Time 0 hours 6 minutes 5 seconds Scope Out: 2:08:03 PM Total Procedure Duration Time 0 hours 10 minutes 55 seconds Findings: The entire examined colon appeared normal on direct and retroflexion views. Impression: - The entire examined colon is normal on direct and retroflexion views. - No specimens collected. Recommendation: - Discharge patient to home. - Resume previous diet. - Continue present medications. - Repeat colonoscopy in 10 years for screening purposes. Procedure Code(s): --- Professional --- 37242, Colonoscopy, flexible; diagnostic, including collection of specimen(s) by brushing or washing, when performed (separate procedure) Diagnosis Code(s): --- Professional --- Z12.11, Encounter for screening for malignant neoplasm of colon CPT copyright 2021 [employer]. All rights reserved. The codes documented in this report are preliminary and upon seafood process worker review may be revised to meet current compliance requirements. Santiago Kumar MD 08/10/2023 2:13:00 PM This report has been signed electronically. Number of Addenda: 0 Note Initiated On: 08/10/2023 1:47 PM
--- NOTE | 2023-08-10 14:13 | OP.CCLET_ITS ---
08/10/2023 Gaurang Romero [address] [facility] [address] [place] [address] Re : Colonoscopy procedure for Valarie Tinajero Dear Dr. Romero This procedure was performed on Thursday, August 10, 2023. My impressions and recommendations are as follows: Impressions : - The entire examined colon is normal on direct and retroflexion views. - No specimens collected. Recommendations : - Discharge patient to home. - Resume previous diet. - Continue present medications. - Repeat colonoscopy in 10 years for screening purposes. My findings are described in the full procedure note, which is enclosed. If I can be of further assistance, please feel free to contact me at Doctor phone number(s): , Work: . Sincerely, Santiago Kumar MD 08/10/2023 2:13:00 PM This report has been signed electronically.
[2023-08-10 14:15] VITALS: BP 111/47; BP 137/76; PULSE 74; RESP 16; TEMP 36.2; O2SAT 97
[2023-08-10 14:20] VITALS: BP 110/51; BP 137/76; PULSE 74; RESP 16; O2SAT 97
[2023-08-10 14:25] VITALS: BP 106/89; BP 137/76; PULSE 70; RESP 16; O2SAT 98
[2023-08-10 14:31] VITALS: BP 105/65; BP 137/76; PULSE 73; RESP 16; TEMP 36.4; O2SAT 97
[2023-08-10 14:45] VITALS: BP 137/76
== END 2023-08-10 15:05 | disposition home or self-care (01) ==
LOC: SDC 12:47 → AC 12:48
PROVIDERS: PCP Family Medicine; Referring Provider Surgery; Visit Provider Surgery
PROC: 0DJD8ZZ Inspection of Lower Intestinal Tract, Via Natural or Artificial Opening Endoscopic (ICD-10-PCS; CPT 45378; principal; 2023-08-10 14:40)
DX: Z12.11 Encounter for screening for malignant neoplasm of colon (principal); E11.9 Type 2 diabetes mellitus without complications; I10 Essential (primary) hypertension
CPT/HCPCS: 45378; 82962; J7120; J2405

== ENCOUNTER → 2023-08-11 | Outpatient (CLI) | payer OTHER, SELFPAY ==
--- NOTE | 2023-08-11 12:58 | US_ITS ---
STUDY: ULTRASOUND OF THE FEMALE PELVIS - COMPLETE REASON FOR EXAM: Female, 58 years old. Post menopausal bleeding LMP: Patient is postmenopausal. TECHNIQUE: Transabdominal and Transvaginal TECHNICAL QUALITY: Adequate. COMPARISON: None. FINDINGS: The uterus is anteverted and is in a midline position. The uterus measures 8.3 cm x 4.9 cm x 4.2 cm. There is a 1.2 cm x 1.65 x 0.6 cm irregular hypoechoic area within the cervical canal with internal vascularity. A follow-up should be ruled out. The endometrium is thickened and measures 5 mm in thickness, and is hyperechoic. There is no demonstrated endometrial mass. There is no demonstrated myometrial mass. I.U.D. - The patient does not have an I.U.D. The right ovary is non-visualized. The left ovary is visualized. The left ovary measures 1.6 x 1.3 solid by 1 cm. There is no left ovarian cyst or ovarian mass. There is no visualized left adnexal mass or complex lesion. There is normal arterial and normal venous vascularity. There is no fluid in the cul-de-sac. US/Pelvic w/ Transvaginal IMPRESSION: Thickened endometrium. 1.2 cm x 1.6 x 0.6 cm irregular area within the cervical canal with internal vascularity. A polyp should be ruled out. Clinical correlation is recommended. Electronically Signed: Romeo Kong MD at 15:17 EST ,
== END | disposition home or self-care (01) ==
LOC: US 12:57
PROVIDERS: PCP Family Medicine; Referring Provider Family Medicine; Visit Provider Family Medicine
DX: N95.0 Postmenopausal bleeding (principal)
CPT/HCPCS: 76830; 76856

== ENCOUNTER → 2023-08-18 | Outpatient (CLI) | payer OTHER, SELFPAY ==
--- NOTE | 2023-08-18 | EMB_PTH ---
PATIENT: MEGAN CAMPA LOC: [facility] U#:[id number] AGE/SX: 58/F ROOM: RE08/18/[address]: CALLI Duran : 1965 BED: DIS: 08/18/2023 SPEC #: [id number] RECD: 08/18/23 10:56 STATUS: SHERRIE REMillie #: [id number] NORM: 08/18/23 00:[address]: Ly Dejesus NP DEPT: SURGICAL PATHOLOGY RECD BY: Nevaeh Blanco ENTERED: 08/18/23 12:55 SP TYPE: ENDOM BX/C GUSTAVO DR: Dr. Gaurang Romero MD Tissues: Endometrium, NOS Procedures: Surgery Specimen Level IV HEADER OPERATION: Endometrial biopsy PRE-OP DIAGNOSIS: Abnormal uterine bleeding TISSUE SUBMITTED: Endometrial lining MICROSCOPIC DIAGNOSIS Endometrium, biopsy: Scant strips of benign superficial glandular mucosa. AM:josé 08/19/2023 MICROSCOPIC DESCRIPTION Slides are reviewed. GROSS DESCRIPTION Received is one container labeled with the patient's name and not further designated. The specimen consists of multiple minute fragments of light díaz soft tissue that in aggregate measure 1.0 x 0.5 x <0.1 cm. The specimen is totally submitted in one cassette. / AM:josé 08/18/2023 TC:5 CPT: 82194
== END | disposition home or self-care (01) ==
LOC: LABSPEC 11:13
PROVIDERS: PCP Family Medicine; Referring Provider Nurse Practitioner Women's Health; Visit Provider Nurse Practitioner Women's Health
DX: N93.9 Abnormal uterine and vaginal bleeding, unspecified (principal)
CPT/HCPCS: 88305

== ENCOUNTER 2023-09-15 08:40 | Day surgery (SDC) | payer OTHER, SELFPAY ==
[2023-09-10 10:37] LABS: Hematocrit 43.9 % (37-47); Hemoglobin 14.2 g/dL (12.0-15.0); Mean Corp Hgb Conc 32.3 g/dL (32-36); Mean Corpuscular Hgb 29.3 pg (27.0-32.0); Mean Corpuscular Volume 90.7 fL (81-99); Mean Platelet Vol. 9.5 fl (6.2-12.0); Platelet Count 353 K/mm3 (150-450); RBC Distribution Width CV 12.8 % (11.6-14.6); RBC Distribution Width SD 42.5 fl (35.1-43.9); Red Blood Count 4.84 M/mm3 (4.2-5.4); White Blood Count 13.6 K/mm3 (4.4-11.0)
[2023-09-10 11:09] LABS: ALB/GLOB Ratio 1.1 RATIO (0.9-2.4); AST(SGOT) 17 U/L (15-37); Alanine Aminotransfer ALT/SGPT 21 U/L (13-56); Albumin, Serum 3.9 g/dL (3.2-5.0); Alkaline Phosphatase 90 U/L (45-117); Anion Gap 7 (5-15); BUN 18 mg/dL (7-18); BUN/Creat Ratio 20.1 RATIO (10-20); Calcium,Total 8.7 mg/dL (8.5-10.1); Chloride 108 mmol/L (98-107); Creatinine, Serum 0.89 mg/dL (0.55-1.02); EST Glomerular Filtration Rate 69 mL/min (>60); Est Glom Filt Rate - Afr Amer 83 mL/min (>60); Globulin 3.7 g/dL (2.2-4.2); Glucose 111 mg/dL (74-106); Potassium 4.1 mmol/L (3.5-5.1); Protein, Total 7.6 g/dL (6.4-8.2); Sodium Level 139 mmol/L (136-145)
[2023-09-15] VITALS (11 sets, daily range): BP systolic 122–156; BP diastolic 63–113; PULSE 66–97; RESP 16–20; TEMP 36.4–36.9; O2SAT 95–98; BMI 29.0
[2023-09-15] MEDS: Levonorgestrel IUD (Liletta) 1 EACH INTRA-UTER (09:00)
[2023-09-15] MEDS: Lactated Ringers 1,000 ML 15 ML IV (09:00)
--- NOTE | 2023-09-15 09:40 | HP.PCM_ITS ---
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 Required: No Is patient in pain?: No Allergies Rzorfvg-FEJ-CfH Reductase Inhibitor Adverse Reaction (Verified 09/07/23 11:10) Cough Medications progesterone micronized 200 mg capsule 200 mg PO QHS hormone replacement 10/09/22 [History Confirmed 09/07/23] BiEst 1 dose topical QHS 04/17/23 [History Confirmed 09/07/23] atorvastatin 10 mg tablet 10 mg PO QHS 04/17/23 [History Confirmed 09/07/23] telmisartan 20 mg tablet 20 mg PO QHS 04/17/23 [History Confirmed 09/07/23] tirzepatide 2.5 mg/0.5 mL subcutaneous pen injector (Mounjaro) 2.5 mg subcut QWEEK 04/17/23 [History Confirmed 09/07/23] trazodone 100 mg tablet 100 mg PO QHS 04/17/23 [History Confirmed 09/07/23] metformin 500 mg tablet 500 mg PO HS 08/07/23 [History Confirmed 09/07/23] omega-3 fatty acids-fish oil 360 mg-1,200 mg capsule (Fish Oil) 1 cap PO DAILY 08/07/23 [History Confirmed 09/07/23] sertraline 50 mg tablet 50 mg PO DAILY 08/07/23 [History Confirmed 09/07/23] turmeric 400 mg capsule 400 mg PO 08/07/23 [History Confirmed 09/07/23] Is last menstrual period known: No Post menopausal: No Patient : No : No [facility] Medical History (Updated 08/18/23 @ 11:42 by Ly Dejesus NP, BAND DIRECTOR-C) Ambulates with cane BRCA gene mutation negative delivery delivered Depression Diabetes Fracture of left ankle HTN (hypertension) Non-smoker Post-menopausal Pre-diabetes Walker as ambulation aid Wears contact lenses Wears glasses Surgical History History of tonsillectomy Hx of appendectomy S/P LASIK surgery of both eyes Family History Mother Breast cancerSister Breast cancerAunt Breast cancer Social History household members: spouse housing: house number of children: 3 current occupational status: unemployed Smoking Status: Never smoker alcohol intake: never substance use type: other details: Gummies seatbelt use: always do you feel safe at home: Yes additional social history: - Carlos [facility] surgical consult Details: MEGAN CAMPA is a 58 year old who presents for a pre-opearative exam. She was initially a referral from Dr Soto for postmenopausal bleeding. She has been using bioidentical hormones several years. US indicates probable 1.6cm polyp within endocervical canal. Endometrial lining 5mm. She is on estrogen cream daily with prometrium oral daily per [place] but was instructed to stop the estrogen cream per Ly Dejesus and is only on the prometrium. States she has had off and on bright to brown bleeding X 2 months. She is tearful. States prior to pregnancies, had infertility evaluation that included endometrial biopsy that was excruciating . We had long discussion of ultrasound results, reason for need for hysteroscopy D&C due to polyp and also need for EMB specimen prior to rule out other suspicious pathology. She agrees to proceed and requests mirena IUD to eliminate need for oral progesterone in the future. Carlos is with her today. History 3 Elective abortions Hx Para 3 Spontaneous abortions Hx # Term Pregnancies Ectopic pregnancies Hx # Pregnancies Multiple births # of living children 3 Past Pregnancies Del. Date Name GA/Weeks Outcome Route Bth Weight Infant Gen [facility] Lidia 1997 Unknown Filomena 2000 Unknown Arti 2003 ROS Const ROS Unobtainable: All systems reviewed & are unremarkable except as noted in H Resp Resp: Reports system reviewed and no additional complaints, except as documented; Denies cough GI GI: Reports as per HPI Psych Psych: Reports system reviewed and no additional complaints, except as documented Exam Const General: cooperative, healthy appearing, comfortable and no acute distress Resp Effort & Inspection: normal respiratory effort Skin General: no rashes or lesions noted Psych Appearance: grossly normal Speech and Movement: speech and movement normal Coding Level of Care Code Off vis,est,level 4 Diagnoses Postmenopausal hormone replacement therapy Z79.890 Endocervical polyp N84.1 Postmenopausal bleeding N95.0 Assessment and Plan Assessment and Plan (1) Postmenopausal hormone replacement therapy: Status: Acute Comment: Enc to stop bioidentical estrogen cream. Will continue prometrium X 2 weeks (2) Endocervical polyp: Status: Acute Comment: plan hysteroscopy D&C with symphion JV (3) Postmenopausal bleeding: Status: Acute Comment: Uterine lining 5mm. EMB benign Plan: After discussing the patient's diagnosis and treatment plan options, patient wishes to proceed with surgical management. I have discussed with the patient the risks, benefits, and alternatives of the procedure which include but are not limited to risks of anesthesia, bleeding, infection, possible damage to bowel, bladder, or surrounding vasculature which could lead to additional surgery to evaluate any complications. Patient agrees to procedure and wishes to proceed. plan for hysteroscopy D&C polypectomy (using symphion) and placement of liletta IUD.
--- NOTE | 2023-09-15 09:43 | DCINST_ITS ---
Discharge Instructions Diet Discharge Diet: No restrictions Activity Discharge Activity: Return to Normal Activity, May Shower and May Take a Tub Bath (after 1 week) May resume sexual activity in: 1-2 weeks Weight Bearing Status: Weight bearing as tolerated Lifting Restrictions: none Dressing / Incision Call your doctor if you observe: Fever of 101 or Higher, Using more than 1 pad per hour, Shortness of breath and Uncontrolled pain Follow Up Care Please Follow Up With: Danielle Ellington DO When: Call [phone] to schedule appointment. Test Results: Test results from this visit will be discussed in further detail at your follow- up appointment, if applicable. Discharge Plan Admission Primary Reason for Your Visit: hysteroscopy dilation and curettage Attending Provider: Danielle Ellington Primary Care Provider: Gaurang Romero Discharge Orders/Prescriptions Prescriptions: New oxycodone-acetaminophen [Percocet] 5-325 mg tablet 1 tab PO Q4H PRN (Reason: pain) 7 Days Qty: 10 0RF Rx Instructions: 1-2 tabs q 4 hrs as needed for pain ibuprofen 800 mg tablet 800 mg PO Q8H PRN (Reason: pain) Qty: 30 0RF Continued metformin 500 mg tablet 1,500 mg PO HS sertraline 50 mg tablet 50 mg PO DAILY omega-3 fatty acids-fish oil [Fish Oil] 360-1,200 mg capsule 1 cap PO DAILY turmeric 400 mg capsule 400 mg PO DAILY Patient Comments: STOPPED / trazodone 100 mg tablet 100 mg PO QHS Mounjaro 2.5 mg/0.5 mL pen injector 2.5 mg subcut QWEEK atorvastatin 10 mg tablet 10 mg PO QHS telmisartan 20 mg tablet 20 mg PO QHS meloxicam 15 mg tablet 15 mg PO DAILY Discontinued progesterone micronized 200 mg capsule 200 mg PO QHS Patient Comments: Take ONE capsule by mouth as directed at bedtime Other Ambulatory Orders: 12 Lead EKG (Routine) Timeframe: [id number] Location: None Selected Ordered By: Dr. Danielle Ellington Referrals / Follow Up: Gaurang Romero MD [Primary Care Provider] - Disposition Disposition (needs filled in before D/C Order can be placed): Home, Self Care
--- NOTE | 2023-09-15 10:10 | EMB_PTH ---
PATHOLOGY RESULTS PATIENT: MEGAN CAMPA LOC: [facility] [place] U#:[id number] AGE/SX: 58/F ROOM: RE09/15/[address]: Dr. Danielle Ellington DO : 1965 BED: DIS: 09/15/2023 SPEC #: [id number] RECD: 09/15/23 12:00 STATUS: SHERRIE JETT #: [id number] NORM: 09/15/23 10:[address]: Danielle Ellington DEPT: SURGICAL PATHOLOGY RECD BY: Pam León ENTERED: 09/15/23 14:33 SP TYPE: ENDOM BX/C OTHR DR: Dr. Gaurang Romero MD Tissues: Endometrium, NOS Procedures: Surgery Specimen Level IV HEADER OPERATION: Hysteroscopy, D & C Symphion, polypectomy, IUD insertion PRE-OP DIAGNOSIS: Postmenopausal hormone replacement therapy, endocervical polyp, postmenopausal bleeding TISSUE SUBMITTED: Endometrial curettings MICROSCOPIC DIAGNOSIS Endometrium, curettings: Rare benign glandular epithelium. See comment. AM:josé 09/16/2023 COMMENT The majority of the specimen consists of mucoid material with inflammatory cells. Clinical correlation is suggested. MICROSCOPIC DESCRIPTION Slides are reviewed. GROSS DESCRIPTION Received in fixative is one container labeled with the patient's name and designated endometrial curettings. The specimen consists of multiple irregular fragments of díaz mucoid tissue that in aggregate measure 5.0 x 3.0 x 0.3 cm. The entire specimen is submitted in two cassettes. / SJ:josé 09/15/2023 TC:5 CPT: 50155
[2023-09-15] MEDS: Lidocaine 1% (20 ml mdv) 20 ML Vial (10:16)
--- NOTE | 2023-09-15 10:47 | OP.PCM_ITS ---
Problems Associated Problem List Diagnoses (1) Postmenopausal hormone replacement therapy: (2) Endocervical polyp: (3) Postmenopausal bleeding: Report of Operation Date of Procedure: 09/15/23 Pre-Operative Diagnosis: postmenopausal bleeding and ultrasound finding of endocervical polyp Post-Operative Diagnosis: postmenopausal bleeding and ultrasound finding of endocervical polyp Surgery/Procedure Performed:: hysteroscopy dilation and curettage, placement of progesterone IUD Description of Surgical Findings:: mucous filled endocervix, normal uterus and uterine lining, no signs of polyp Surgeon: Danielle Ellington forge hand: None Type of Anesthesia: MAC/Supplemental/Local Specimen's removed: endometrial curetting Estimated Blood Loss (mL): 5cc Description of Procedure: Patient was prepped and draped in a normal sterile fashion under MAC anesthesia. A weighted speculum was placed in the vagina and the anterior lip of the cervix was grasped with a single-tooth tenaculum. A paracervical block was placed with 1% lidocaine. Cervix was progressively dilated, Uterine sounded to 9 cm.. Passage of a 5 mm hysteroscope into the uterus showed a fully visualized lining and noted to be normal without polyp or excessive tissue. As the hysteroscope was pulled back there was noted to be removal of a large mucous plug from the cervix. Curettage was performed and scant tissue was collected and sent to pathology. Next, the Liletta IUD was inserted to the fundus and the strings were trimmed to about 2-3 cm from the cervix. All instruments were removed from the vagina and excellent hemostasis was noted. Patient was awoken and taken to recovery in stable condition. Grafts/Implants Used: liletta IUD Complications none Admit VTE Documentation VTE Present on Admission: No VTE Mechan Device Prophylaxis: [facility] [place] Prophylaxis ordered?: No Multi Select Codes Urinary/Genital Urinary/Genital CPT Codes: 43533 Insert IUD [place] 10240 Hysteroscopy, diagnostic
== END 2023-09-15 12:30 | disposition home or self-care (01) ==
LOC: SDC 08:44 → AC 08:45
PROVIDERS: PCP Family Medicine; Referring Provider Obstetrics & Gynecology; Visit Provider Obstetrics & Gynecology
PROC: 0UB98ZZ Excision of Uterus, Via Natural or Artificial Opening Endoscopic (ICD-10-PCS; CPT 58558; principal; 2023-09-15 09:55)
DX: N95.0 Postmenopausal bleeding (principal); E11.9 Type 2 diabetes mellitus without complications; Z30.430 Encounter for insertion of intrauterine contraceptive device; N84.1 Polyp of cervix uteri; Z79.84 Long term (current) use of oral hypoglycemic drugs; I10 Essential (primary) hypertension; Z79.890 Hormone replacement therapy; Z79.899 Other long term (current) drug therapy
CPT/HCPCS: 58558; 58300; 00952; 36415; 80053; 85027; 86850; 86900; 86901; 88305; 93005; J7120; J2405

== ENCOUNTER 2023-09-17 10:30 | Outpatient (RCR) | payer OTHER, SELFPAY ==
--- NOTE | 2023-05-29 11:48 | HP.PTEVAL_ITS ---
Patient's Visit Information Visit Information Visit Information: MEGAN CAMPA is a 58 year old F referred to Physical Therapy by Dr. Keshawn Woodall DPM with a diagnosis of s/p Left Hardware Removal Ankle. Date of Evaluation: 05/29/23 Physical Therapist: Zahraa Llanos DPT Visit Plan Frequency: 2x /Week Duration: 4 Weeks Plan: Focus on LE and core strength/stabilization, proprioception, flex and gait HEP Given IE: Ankle ROM, seated heel slide, standing weight shifts Subjective Subjective: From Evaluation James Monsalve PT 01/12/23: DOS: 10/09/22. Pt reports she was descending stairs when she slipped on the last 2 and dislocated/fractured her L ankle. Pt reports she had surgery to insert plates and screws into her L ankle. Pt reports she went 8 weeks NWBing in a splint, and now is WBTt in her cam boot. DX: L ankle ORIF Current Subjective: Dr. Woodall went back in 05/05/23 and removed all of the hard wear of the ORIF of the left ankle- and she was able to WBAT after that surgery. At this time she is doing okay- she reports that she has very little muscle and a constant pain in the left lower leg. She feels that she has decreased range of motion in the ankle. Pain is located along the ortiz bone medial and lateral and then if she hit the heel on the bottom- when she hits the bottom its a sharp shooting where the top is more dull and achy. She normally wears a compression sock. Worst: 9/10 when she hits her heel- 4/10 on a typical day. Best: 0/10 when she is sleeping. No pain that radiates past the knee. Does have some N/T that come and goes in the toes. Sleep: keeps her from falling asleep but once asleep. She is normally very active. 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 She is normally in tennis shoes Pumas and does not wear an orthotic- no brace. PMHx/Meds: see list in chart from hospital no changes. Exercises: towel s tretch, leg lifts, getting down on her knee and pushing it forwards, walking Objective Objective: Posture: FH, RS- can correct but does not maintain throughout session Gait: straight cane- decreased stance on left LE with poor heel toe pattern- left LE outside of base of support with external rotation HR/TR: able in sitting with limited ROM in toe raise due to lack of ROM SLS: weight shift only Palpation: tender along distal 1/3 of tibia- mortise Observation: incisions well healed- no s/s of infection or hypertrophic scarring Girth: Figure 8:50 cm Malls: 25 cm Mets: 20.5 cm ROM: DF: 5 degrees from neutral, PF: 30 degrees Inver: 30 degrees, Ever: 10 degrees Strength: Knee: 4+/5, Ankle: DF: 4/5 in available range, PF: 4/5, Inver: 4-/5 with discomfort, Ever: 4-/5 with discomfort Balance/Special Test Scores Lower Extremity Functional Score: 25 Goals Goal 1:: Patient will be I with HEP and progression Goal Time Frame: 4-6 Weeks Goal 2:: Patient will SLS for 30 sec without LOB Goal Time Frame: 4-6 Weeks Goal 3:: Patient will ambulate >300 feet with a normalized gait pattern and no AD Goal Time Frame: 4-6 Weeks Goal 4:: Patient will report 80% improvement Goal Time Frame: 4-6 Weeks Goal 5:: Patient will demo 10 degrees of DF Goal Time Frame: 4-6 Weeks Rehabilitation Potential Physical Therapy Diagnosis: Patient presents s/p left Hardware Removal of ORIF ankle- she has decreased LE ROM, strength/stabilization, flex, proprioception, and muscular endurance leading to abnormal gait and decreased ability to perform ADL's work related tasks. Rehabilitation Potential: Good Anticipated Interventions Patient/Client Instruction: Educate patient on: Benefits of Fitness Program Therapeutic Exercise to Include: Strength training, Endurance training, Balance training, Coordination, Agility training, Body mechanics, Postural training, Flexibilty training, Gait and locomotor training, Neuromotor development, Passive ROM, Active ROM, Dynamic Lumbar Stabilization and Scapular Strength/Stabilization Cryotherapy (ice pack, ice massage): Yes Thermo therapy (hot pack): Yes Text: Thank you for the opportunity to evaluate your patient. For Medicare and Medicare HMO plans, please review the plan of care and approve it. It will need to be FAXED BACK to us at [phone] for Medicare purposes. For Medicare only, by signing this I certify the plan of care. Please let me know if there are questions or concerns regarding this plan of care. Physician Signature: Date:
--- NOTE | 2023-06-25 12:50 | HP.PTREVAL ---
Re-Evaluation Intro: Dr. Keshawn Woodall, DPM, It has been my pleasure to treat MEGAN CAMPA over the last 8 visits for s/p Left Hardware Removal Ankle (May 2023).. Please see the progress note below for an update on the physical therapy plan of care! Subjective Subjective: Patient reports that she feels like its stiff and painful still and it limits her mobility- she is still using the cane- she has burning pain in the medial plantar surface of the foot. 4/10 is the worst the pain has been. The pain consistently when walking is a 2/10. Objective Objective/Function: Posture: FH, RS- can correct but does not maintain throughout session Gait: straight cane- decreased stance on left LE with poor heel toe pattern- left LE outside of base of support with external rotation HR/TR: able in sitting with limited ROM in toe raise due to lack of ROM SLS: 2 seconds Palpation: tender along distal 1/3 of tibia- mortise Observation: incisions well healed- no s/s of infection or hypertrophic scarring Girth: Figure 8:47.5 cm Malls: 23 cm Mets: 20 cm ROM: DF: 5 degrees from neutral, PF: 30 degrees Inver: 30 degrees, Ever: 10 degrees Strength: Knee: 4+/5, Ankle: DF: 4+/5 in available range, PF: 4+/5, Inver: 4/5 with discomfort, Ever: 4/5 with discomfort Plan Plan Plan: 06/25/23: 3x a week for 4 weeks- focus on DF/PF ROM and proprioception- Functional gait pattern Focus on LE and core strength/stabilization, proprioception, flex and gait Balance/Gait/Functional tests Balance/Special Test Scores Lower Extremity Functional Score: 31 Goals Goals Goal 1:: Patient will be I with HEP and progression Goal Time Frame: 4-6 Weeks Goal Progress: Progressing Goal 2:: Patient will SLS for 30 sec without LOB Goal Time Frame: 4-6 Weeks Goal Progress: Progressing Goal 3:: Patient will ambulate >300 feet with a normalized gait pattern and no AD Goal Time Frame: 4-6 Weeks Goal Progress: Progressing Goal 4:: Patient will report 80% improvement Goal Time Frame: 4-6 Weeks Goal Progress: Progressing Goal 5:: Patient will demo 10 degrees of DF Goal Time Frame: 4-6 Weeks Goal Progress: Progressing Anticipated Interventions Anticipated Interventions Patient/Client Instruction: Educate patient on: Benefits of Fitness Program Therapeutic Exercise to Include: Strength training, Endurance training, Balance training, Coordination, Agility training, Body mechanics, Postural training, Flexibilty training, Gait and locomotor training, Neuromotor development, Passive ROM, Active ROM, Dynamic Lumbar Stabilization and Scapular Strength/Stabilization Cryotherapy (ice pack, ice massage): Yes Thermo therapy (hot pack): Yes Re-Evaluation Ending Re-evaluation ending: Please do not hesitate to contact me at [phone] by phone or if you have questions or concerns regarding this new plan of care! Sincerely, Zahraa Llanos DPT
--- NOTE | 2023-07-24 11:24 | HP.PTREVAL_ITS ---
Re-Evaluation Intro: Dr. Keshawn Woodall, DPM, It has been my pleasure to treat MEGAN CAMPA over the last 20 visits for s/p Left Hardware Removal Ankle (May 2023).. Please see the progress note below for an update on the physical therapy plan of care! Subjective Subjective: Patient reports that she was really sore this morning due to not taking Meloxicam since EPAT yesterday- bottom of the foot and then in the calf- and is wearing a compression stocking. -03/14 today- before today she was a - 12/12. She feels that she is still making progress. Her ambulation is improving but she is frustrated with why is its not bending. Objective Objective/Function: Posture: FH, RS- can correct but does not maintain throughout session Gait: improved-straight cane- decreased stance on left LE with dec heel toe pattern HR/TR: able in sitting with limited ROM in toe raise due to lack of ROM SLS: 5 seconds Palpation: tender along distal 1/3 of tibia- mortise Observation: incisions well healed- no s/s of infection or hypertrophic scarring ROM: DF: neutral, PF: 50 degrees Inver: 30 degrees, Ever: 10 degrees Strength: Knee: 4+/5, Ankle: DF: 4+/5 in available range, PF: 4+/5, Inver: 4/5 with discomfort, Ever: 4/5 with discomfort Plan Plan Plan: 07/24/23: 2x a week for 4 weeks- focus on gait pattern and DF and prop rioception 06/25/23: 3x a week for 4 weeks- focus on DF/PF ROM and proprioception- Functional gait pattern Focus on LE and core strength/stabilization, proprioception, flex and gait Balance/Gait/Functional tests Balance/Special Test Scores Lower Extremity Functional Score: 33 Goals Goals Goal 1:: Patient will be I with HEP and progression Goal Time Frame: 4-6 Weeks Goal Progress: Progressing Goal 2:: Patient will SLS for 30 sec without LOB Goal Time Frame: 4-6 Weeks Goal Progress: Progressing Goal 3:: Patient will ambulate >300 feet with a normalized gait pattern and no AD Goal Time Frame: 4-6 Weeks Goal Progress: Progressing Goal 4:: Patient will report 80% improvement Goal Time Frame: 4-6 Weeks Goal Progress: Progressing Goal 5:: Patient will demo 10 degrees of DF Goal Time Frame: 4-6 Weeks Goal Progress: Progressing Anticipated Interventions Anticipated Interventions Patient/Client Instruction: Educate patient on: Benefits of Fitness Program Therapeutic Exercise to Include: Strength training, Endurance training, Balance training, Coordination, Agility training, Body mechanics, Postural training, Flexibilty training, Gait and locomotor training, Neuromotor development, Passive ROM, Active ROM, Dynamic Lumbar Stabilization and Scapular Strength/Stabilization Cryotherapy (ice pack, ice massage): Yes Thermo therapy (hot pack): Yes Re-Evaluation Ending Re-evaluation ending: Please do not hesitate to contact me at [phone] by phone or if you have questions or concerns regarding this new plan of care! Sincerely, Zahraa Llanos DPT
--- NOTE | 2023-08-20 11:31 | HP.PTREVAL ---
Re-Evaluation Intro: Dr. Keshawn Woodall, DPM, It has been my pleasure to treat MEGAN CAMPA over the last 28 visits for s/p Left Hardware Removal Ankle (May 2023).. Please see the progress note below for an update on the physical therapy plan of care! Subjective Subjective: I overdid it yesterday. I am getting better Objective Objective/Function: L ankle pain 3/10 L ankle DF ROM -2 degrees Pt is I with HEP Pt is able to ambulate 340 feet with no assistive device, but still displays antalgic gait pattern and lack of heel strike Plan Plan Plan: Continue with focus on L ankle DF ROM, gait training, and L ankle strengthening Balance/Gait/Functional tests Balance/Special Test Scores Lower Extremity Functional Score: 33 Goals Goals Goal 1:: Patient will be I with HEP and progression Goal Time Frame: 4-6 Weeks Goal Progress: Goal Met Goal 2:: Patient will SLS for 30 sec without LOB Goal Time Frame: 4-6 Weeks Goal Progress: Progressing Goal 3:: Patient will ambulate >300 feet with a normalized gait pattern and no AD Goal Time Frame: 4-6 Weeks Goal Progress: Progressing Goal 4:: Patient will report 80% improvement Goal Time Frame: 4-6 Weeks Goal Progress: Progressing Goal 5:: Patient will demo 10 degrees of DF Goal Time Frame: 4-6 Weeks Goal Progress: Progressing Anticipated Interventions Anticipated Interventions Patient/Client Instruction: Educate patient on: Benefits of Fitness Program Therapeutic Exercise to Include: Strength training, Endurance training, Balance training, Coordination, Agility training, Body mechanics, Postural training, Flexibilty training, Gait and locomotor training, Neuromotor development, Passive ROM, Active ROM, Dynamic Lumbar Stabilization and Scapular Strength/Stabilization Cryotherapy (ice pack, ice massage): Yes Thermo therapy (hot pack): Yes Re-Evaluation Ending Re-evaluation ending: Please do not hesitate to contact me at [phone] by phone or if you have questions or concerns regarding this new plan of care! Sincerely, James Monsalve, PT, ATC
--- NOTE | 2023-11-03 11:07 | HP.PTDCSUM ---
Discharge Summary D/C summary: It has been my pleasure to treat MEGAN CAMPA referred by Dr. Keshawn Woodall DPM, with the diagnosis of s/p Left Hardware Removal Ankle (May 2023). for a total of 35 visit(s). Discharge Date: Please see the following information for a summary of their discharge status. Subjective Subjective: I am still limited with stair negotiation at this time. Pain L tibia area: Pain Intensity (Out of 10): 0 Overall Improvement % Improvement: 75 Objective Objective/Function: L ankle pain ranges from 0-3/10 L ankle DF ROM 0 degrees Pt is able to SLS for greater than 30 seconds Pt is able to ambulate 300 feet with a normal gait pattern Pt is I with HEP Goals Goal 1:: Patient will be I with HEP and progression Goal Progress: Goal Met Goal 2:: Patient will SLS for 30 sec without LOB Goal Progress: Goal Met Goal 3:: Patient will ambulate >300 feet with a normalized gait pattern and no AD Goal Progress: Goal Met Goal 4:: Patient will report 80% improvement Goal Progress: Progressing Goal 5:: Patient will demo 10 degrees of DF Goal Progress: Progressing Plan Plan: Discontinue to HEP D/C Information d/c sentence: If there are questions or concerns regarding this patient's physical therapy, please feel free to call me at [phone]. Thank you for the referral of this patient. Sincerely, James Monsalve, PT, ATC Balance/Gait/Functional tests Balance/Special Test Scores Lower Extremity Functional Score: 45 Improvement % Improvement: 75
== END 2023-09-17 19:00 | disposition home or self-care (01) ==
LOC: PT 10:30
PROVIDERS: PCP Family Medicine; Referring Provider Podiatrist; Visit Provider Podiatrist
DX: Z98.890 Other specified postprocedural states (principal)
CPT/HCPCS: 97014; 97110; 97116; 97162; 97164; G0283

== ENCOUNTER → 2024-04-04 | Outpatient (CLI) | payer OTHER, SELFPAY ==
--- NOTE | 2024-04-04 10:37 | BI_ITS ---
MAMMOGRAPHY - BILATERAL SCREENING 3-D TOMOSYNTHESIS REASON FOR EXAM: Female, 59 years old. screening PERTINENT HISTORY: No significant family history. TECHNIQUE: 2-D mammograms and 3-D Tomosynthesis of the breast (s) were performed. CAD was performed. COMPARISON: 04/01/2023 FINDINGS: The breast composition is heterogeneously dense that can obscure small breast masses. Scattered benign calcifications are seen. No dense spiculated masses or suspicious microcalcifications are identified. No architectural distortion is identified. There is no skin thickening or retraction. There has been no significant change since the prior study. BI/SCRN MAMM (CAD)W/[place] BILAT IMPRESSION: No mammographic signs of malignancy. Routine yearly mammograms recommended. ASSESSMENT CATEGORY: BIRADS Category 1: Negative. A letter regarding these results will be sent to the patient by the facility within 30 days. FOLLOW UP RECOMMENDATION: Yearly follow up mammogram recommended. (A) Approximately 10% of breast cancers are not detected by mammography. A normal mammogram should not delay biopsy of a clinically suspicious abnormality. Electronically Signed: King Antonio MD at 16:25 EDT ,
== END | disposition home or self-care (01) ==
LOC: OPBI 10:35
PROVIDERS: PCP Family Medicine; Referring Provider Family Medicine; Visit Provider Family Medicine
DX: Z12.31 Encounter for screening mammogram for malignant neoplasm of breast (principal)
CPT/HCPCS: 77063; 77067

== ENCOUNTER → 2024-10-19 | Outpatient (CLI) | payer OTHER, SELFPAY ==
[2024-10-19 08:56] LABS: Hematocrit 43.7 % (37-47); Hemoglobin 14.4 g/dL (12.0-15.0); Mean Corpuscular Hgb 29.1 pg (27.0-32.0); Mean Corpuscular Volume 88.5 fL (81-99); Mean Platelet Vol. 9.5 fl (6.2-12.0); Platelet Count 330 K/mm3 (150-450); RBC Distribution Width CV 12.9 % (11.6-14.6); RBC Distribution Width SD 41.6 fl (35.1-43.9); Red Blood Count 4.94 M/mm3 (4.2-5.4); White Blood Count 8.8 K/mm3 (4.4-11.0)
[2024-10-19 09:15] LABS: Microalbumin,Random Urine 11.5 mg/L (NO RANGE EST.); Microalbumin:Creatinine Ratio 5.4 mg/g CRE (<30 mg/g CRE)
[2024-10-19 09:23] LABS: Hemoglobin A1c 5.4 % (3.8-5.6)
[2024-10-19 09:36] LABS: ALB/GLOB Ratio 1.1 RATIO (0.9-2.4); AST(SGOT) 11 U/L (15-37); Alanine Aminotransfer ALT/SGPT 17 U/L (13-56); Albumin, Serum 3.7 g/dL (3.2-5.0); Alkaline Phosphatase 82 U/L (45-117); Anion Gap 5 (5-15); BUN 23 mg/dL (7-18); BUN/Creat Ratio 28.7 RATIO (10-20); Calcium,Total 9.3 mg/dL (8.5-10.1); Chloride 108 mmol/L (98-107); Cholesterol 241 mg/dL (200); EST Glomerular Filtration Rate 77 mL/min (>60); Est Glom Filt Rate - Afr Amer 94 mL/min (>60); Estradiol 47.4 pg/mL; Globulin 3.3 g/dL (2.2-4.2); Glucose 110 mg/dL (74-106); High Density Lipoprotein 68 mg/dL; Magnesium 2.2 mg/dL (1.6-2.6); Sodium Level 140 mmol/L (136-145); Triglycerides 84 mg/dL; Very Low Density Lipoprotein 17 mg/dL (5-40)
[2024-10-20 04:07] LABS: PROGESTERONE 0.2 ng/mL (.)
[2024-10-23 16:07] LABS: Testosterone, % Free 2.63 % (0.50-2.80); Testosterone, Free 0.63 ng/dL (0.10-0.85); Testosterone, Total 24 ng/dL (4-50)
== END | disposition home or self-care (01) ==
LOC: LAB 08:27
PROVIDERS: PCP Family Medicine; Referring Provider Registered Nurse; Visit Provider Registered Nurse
DX: R63.5 Abnormal weight gain (principal); R68.82 Decreased libido; R53.83 Other fatigue; M62.84 Sarcopenia; R41.840 Attention and concentration deficit; I10 Essential (primary) hypertension; R00.2 Palpitations; E88.810 Metabolic syndrome
CPT/HCPCS: 80053; 80061; 82043; 82570; 82627; 82670; 83036; 83735; 84144; 84270; 84402; 84403; 84443; 85027; 82626

== ENCOUNTER → 2025-06-09 | Outpatient (CLI) | payer MEDICAID, SELFPAY ==
--- NOTE | 2025-06-09 14:30 | BI_ITS ---
EXAM: SCRN MAMM (CAD)W/[place] BILAT DATE: 06/09/2025 CLINICAL HISTORY: F, Age 60 y/o , SCREENING TECHNIQUE: Procedure Code: [id number] Modality: MG Procedure: SCRN MAMM (CAD)W/[place] BILAT COMPARISON: Prior exam(s) dated 04/04/2024 and 03/24/2023. FINDINGS: TISSUE DENSITY: The breasts are heterogeneously dense, which may obscure small masses. Bilateral Breast Mammographic Findings: No significant masses, calcifications or other abnormalities are identified. Benign round microcalcifications are seen in both breast. BI/SCRN MAMM (CAD)W/[place] BILAT IMPRESSION: Benign screening mammogram. OVERALL FINAL ASSESSMENT BI-RADS 2: BENIGN RECOMMENDATION: Routine annual follow-up in 1 Year A letter with findings and recommendations will be mailed to the patient. Reading Location: [id number]
== END | disposition home or self-care (01) ==
LOC: CT 14:29
PROVIDERS: PCP Family Medicine; Referring Provider Family Medicine
DX: Z12.31 Encounter for screening mammogram for malignant neoplasm of breast (principal)
CPT/HCPCS: 77063; 77067

== ENCOUNTER → 2025-08-22 | Outpatient (CLI) | payer MEDICAID, SELFPAY ==
[2025-08-22 09:58] LABS: Hematocrit 46.1 % (37-47); Hemoglobin 15.0 g/dL (12.0-15.0); Immature Granulocytes Count 0.030 X10^3/uL (0.0-0.0); Mean Corp Hgb Conc 32.5 g/dL (32-36); Mean Corpuscular Volume 89.0 fL (81-99); Mean Platelet Vol. 9.1 fl (6.2-12.0); NRBC Flagged by Analyzer 0 % (0-5); Platelet Count 324 K/mm3 (150-450); RBC Distribution Width CV 13.2 % (11.6-14.6); RBC Distribution Width SD 43.2 fl (35.1-43.9); Red Blood Count 5.18 M/mm3 (4.2-5.4); White Blood Count 9.7 K/mm3 (4.4-11.0)
[2025-08-22 10:39] LABS: AST(SGOT) 18 U/L (<=31); Alanine Aminotransfer ALT/SGPT 13 U/L (<=34); Albumin, Serum 4.3 g/dL (3.4-4.8); Alkaline Phosphatase 72 U/L (35-104); Anion Gap 11 (5-15); BUN 14 mg/dL (4-19); BUN/Creat Ratio 15.9 RATIO (10-20); Calcium,Total 9.3 mg/dL (7.6-11.0); Carbon Dioxide 21.1 mmol/L (21.0-32.0); Chloride 109 mmol/L (98-108); Cholesterol 212 mg/dL (<=200); Globulin 2.8 g/dL (2.2-4.2); Glucose 107 mg/dL (70-99); Low Density Lipoprotein Calc. 139 mg/dL; Magnesium 2.0 mg/dL (1.5-2.2); Potassium 4.4 mmol/L (3.3-5.1); Triglycerides 98 mg/dL; Very Low Density Lipoprotein 20 mg/dL (5-40); cholesterol:hdl ratio screen 3.80
[2025-08-22 17:55] LABS: Xtra Tube EP Lab EXTRA TUBE
== END | disposition home or self-care (01) ==
PROVIDERS: PCP Family Medicine; Referring Provider Family Medicine; Visit Provider Family Medicine
DX: I10 Essential (primary) hypertension (principal); R00.2 Palpitations
CPT/HCPCS: 36415; 80053; 80061; 83735; 84443; 85025